=== PATIENT | male | born 1950 | race Hispanic/Latino ===

== ENCOUNTER 2022-02-10 19:05 | Inpatient (IN) | payer OTHER ==
[~2022-02-10] VITALS: Ht 167.6 cm; Wt 55.0 kg
[~2022-02-10 19:05] MED LIST: AMLO5TAB4 PO; ASPI-1005 PO; ATOR40TA71 PO; FOLI1 PO; FURO20TA6 PO; METO25 PO
[2022-02-10] MEDS ORDERED: MORPHINE 4 MG SYG IVP ONE (19:30)
[2022-02-10] MEDS ORDERED: ONDANSETRON 4MG INJ IVP ONE (19:30)
[2022-02-10 19:58] LABS: BASOPHILS % (AUTO) 0.3 % (0.0-5.0); EOSINOPHILS % (AUTO) 0.2 % (0.0-8.0); HEMATOCRIT 35.9 % (42-54); LYMPHOCYTES % (AUTO) 7.3 % (21.0-51.0); MEAN CORPUSCULAR HEMOGLOBIN 29.9 pg (27.0-33.0); MEAN CORPUSCULAR HGB CONC 35.1 g/dL (32.0-36.0); MEAN CORPUSCULAR VOLUME 85.3 fL (79-99); NEUTROPHILS % (AUTO) 86.5 % (40.0-77.0); PLATELET COUNT (AUTO) 324 K/uL (130-400); RED BLOOD CELL COUNT(AUTO) 4.21 MIL/uL (4.50-6.20); RED CELL DISTRIBUTION WIDTH 11.6 % (11.0-15.5)
[2022-02-10 20:23] LABS: CREATININE 1.7 mg/dL (0.5-1.5); POTASSIUM 3.1 mmol/L (3.5-5.1)
[2022-02-10 20:32] LABS: ALBUMIN 1.7 g/dL (3.5-5.0); BILIRUBIN,TOTAL 0.5 mg/dL (0.2-1.0); TOTAL PROTEIN, SERUM 7.2 g/dL (6.0-8.3)
[2022-02-10] MEDS ORDERED: ZOSYN 3.375GM +NS 50ML IV SCH (21:00)
[2022-02-10] MEDS ORDERED: INSULIN HUMULIN R 100 UNIT/ML 3ML SQ ONE (21:00)
[2022-02-10] MEDS ORDERED: VANCOMYCIN KIT 1 GM/250 ML IV.KIT IV ONE (21:00)
[2022-02-10] MEDS ORDERED: CLINDAMYCIN IVPB 900MG/50ML 50 ML IV SCH (21:00)
[2022-02-10] MEDS ORDERED: 0.9%NACL 1000ML 1,000 ML IV ONE (21:00)
[2022-02-10] MEDS ORDERED: HYDRALAZINE 20MG/ML VIAL IV PRN (22:00)
[2022-02-10] MEDS ORDERED: ACETAMINOPHEN 325 MG TAB PO PRN (22:00)
[2022-02-10] MEDS ORDERED: ONDANSETRON 4MG INJ IV PRN (22:00)
[2022-02-10] MEDS ORDERED: DIPHENHYDRAMINE HCL 25 MG CAPSULE PO PRN (22:00)
[2022-02-10] MEDS ORDERED: HYDROCODONE/ACETAMINOPHEN 5/325 MG TAB PO ONE (22:30)
[2022-02-11] MEDS: LACTATED RINGERS 1000ML 1,000 ML IV SCH ×2 (00:46→08:36)
[2022-02-11] MEDS ORDERED: GLUCAGON 1MG KIT 1 MG ML IM PRN (05:30)
[2022-02-11] MEDS ORDERED: DEXTROSE 50%-WATER 50 ML DISP.SYRIN IV PRN (05:30)
[2022-02-11 07:03] LABS: BASOPHILS % (AUTO) 0.4 % (0.0-5.0); EOSINOPHILS % (AUTO) 0.8 % (0.0-8.0); HEMATOCRIT 35.1 % (42-54); LYMPHOCYTES % (AUTO) 8.5 % (21.0-51.0); MEAN CORPUSCULAR HGB CONC 33.3 g/dL (32.0-36.0); MEAN CORPUSCULAR VOLUME 86.9 fL (79-99); MONOCYTES % (AUTO) 5.5 % (3.0-13.0); PLATELET COUNT (AUTO) 321 K/uL (130-400); RED BLOOD CELL COUNT(AUTO) 4.04 MIL/uL (4.50-6.20); RED CELL DISTRIBUTION WIDTH 11.5 % (11.0-15.5); WHITE BLOOD COUNT (AUTO) 22.5 K/uL (4.8-10.8)
[2022-02-11 07:18] LABS: ALBUMIN 1.6 g/dL (3.5-5.0); BILIRUBIN,TOTAL 0.7 mg/dL (0.2-1.0); CREATININE 1.5 mg/dL (0.5-1.5); POTASSIUM 3.4 mmol/L (3.5-5.1); TOTAL PROTEIN, SERUM 6.7 g/dL (6.0-8.3)
[2022-02-11] MEDS: ZOSYN 3.375GM +NS 50ML IV SCH ×3 (07:18→22:18)
[2022-02-11] MEDS: INSULIN HUMULIN R 100 UNIT/ML 3ML SQ SCH ×4 (07:30→20:31)
[2022-02-11] MEDS ORDERED: VANCOMYCIN PROTOCOL PER PHARMACY IV SCH (08:30)
[2022-02-11] MEDS ORDERED: GABA300C PO (08:40)
[2022-02-11] MEDS: ACETAMINOPHEN WITH CODEINE 1 TAB TAB PO PRN ×2 (09:08→18:14)
[2022-02-11 09:09] LABS: HEMOGLOBIN A1C 8.5 % (4.0-6.0)
[2022-02-11] MEDS ORDERED: VANCOMYCIN 1G/250ML KIT 250 ML IV SCH (10:00)
[2022-02-11 16:00] VITALS: BP 146/66
[2022-02-11 19:55] VITALS: BP 137/67
[2022-02-11] MEDS: METOPROLOL TARTRATE 25 MG TAB PO SCH (20:30)
[2022-02-11] MEDS: VANCOMYCIN 500MG+NS 100ML 100 ML IV SCH (20:30)
[2022-02-11 23:29] VITALS: BP 130/68
[2022-02-12] MEDS: LACTATED RINGERS 1000ML 1,000 ML IV SCH (02:59)
[2022-02-12 03:19] VITALS: BP 150/67
[2022-02-12 05:25] LABS: BASOPHILS % (AUTO) 0.6 % (0.0-5.0); EOSINOPHILS % (AUTO) 1.7 % (0.0-8.0); HEMATOCRIT 33.2 % (42-54); LYMPHOCYTES % (AUTO) 7.9 % (21.0-51.0); MEAN CORPUSCULAR HEMOGLOBIN 29.4 pg (27.0-33.0); MEAN CORPUSCULAR VOLUME 86.2 fL (79-99); MONOCYTES % (AUTO) 5.5 % (3.0-13.0); NEUTROPHILS % (AUTO) 83.5 % (40.0-77.0); PLATELET COUNT (AUTO) 345 K/uL (130-400); RED BLOOD CELL COUNT(AUTO) 3.85 MIL/uL (4.50-6.20); RED CELL DISTRIBUTION WIDTH 11.7 % (11.0-15.5); WHITE BLOOD COUNT (AUTO) 21.3 K/uL (4.8-10.8)
[2022-02-12 05:51] LABS: CREATININE 1.6 mg/dL (0.5-1.5); MAGNESIUM 1.8 mg/dL (1.80-2.40); POTASSIUM 3.3 mmol/L (3.5-5.1)
[2022-02-12] MEDS: ZOSYN 3.375GM +NS 50ML IV SCH ×3 (05:57→20:46)
[2022-02-12] MEDS: INSULIN HUMULIN R 100 UNIT/ML 3ML SQ SCH ×4 (05:58→21:44)
[2022-02-12] MEDS: ACETAMINOPHEN WITH CODEINE 1 TAB TAB PO PRN ×2 (06:07→13:48)
[2022-02-12 08:00] VITALS: BP 189/66
[2022-02-12] MEDS: METOPROLOL TARTRATE 25 MG TAB PO SCH ×2 (09:02→20:43)
[2022-02-12] MEDS: AMLODIPINE 5 MG TAB PO SCH (09:03)
[2022-02-12] MEDS: VANCOMYCIN 500MG+NS 100ML 100 ML IV SCH ×2 (09:03→20:43)
[2022-02-12] MEDS: KCL 20 MEQ ERTAB PO PRN (09:03)
[2022-02-12] MEDS: KCL 20 MEQ ERTAB PO SCH (09:08)
[2022-02-12 12:00] VITALS: BP 137/78
[2022-02-12] MEDS: POLYETHYLENE GLYCOL 3350 17 GM POWD.PACK PO SCH (13:32)
[2022-02-12] MEDS: ASPIRIN 81 MG EC TAB PO SCH (13:32)
[2022-02-12 16:00] VITALS: BP 130/61
[2022-02-12 19:00] VITALS: BP 143/63
[2022-02-12] MEDS: DOCUSATE SODIUM 100 MG CAP PO SCH (20:43)
[2022-02-13] VITALS (7 sets, daily range): BP systolic 113–159; BP diastolic 57–77
[2022-02-13] MEDS: ZOSYN 3.375GM +NS 50ML IV SCH ×3 (05:06→20:30)
[2022-02-13] MEDS: INSULIN HUMULIN R 100 UNIT/ML 3ML SQ SCH ×4 (06:06→20:30)
[2022-02-13] MEDS ORDERED: NAFCILLIN 2GM+ NS 100ML IV SCH (08:00)
[2022-02-13] MEDS: DOCUSATE SODIUM 100 MG CAP PO SCH ×2 (08:20→20:29)
[2022-02-13] MEDS: AMLODIPINE 5 MG TAB PO SCH (08:20)
[2022-02-13] MEDS: METOPROLOL TARTRATE 25 MG TAB PO SCH ×2 (08:20→20:29)
[2022-02-13] MEDS: ASPIRIN 81 MG EC TAB PO SCH (08:20)
[2022-02-13] MEDS: KCL 20 MEQ ERTAB PO SCH (08:59)
[2022-02-13] MEDS: NAFCILLIN 2GM+ NS 100ML 100 ML IV SCH ×2 (09:00→12:27)
[2022-02-13 10:00] LABS: BASOPHILS % (AUTO) 0.5 % (0.0-5.0); EOSINOPHILS % (AUTO) 1.6 % (0.0-8.0); HEMATOCRIT 32.6 % (42-54); LYMPHOCYTES % (AUTO) 8.2 % (21.0-51.0); MEAN CORPUSCULAR HEMOGLOBIN 28.6 pg (27.0-33.0); MEAN CORPUSCULAR HGB CONC 33.4 g/dL (32.0-36.0); MEAN CORPUSCULAR VOLUME 85.6 fL (79-99); MONOCYTES % (AUTO) 4.1 % (3.0-13.0); NEUTROPHILS % (AUTO) 85.1 % (40.0-77.0); PLATELET COUNT (AUTO) 328 K/uL (130-400); RED BLOOD CELL COUNT(AUTO) 3.81 MIL/uL (4.50-6.20); RED CELL DISTRIBUTION WIDTH 11.7 % (11.0-15.5); WHITE BLOOD COUNT (AUTO) 20.8 K/uL (4.8-10.8)
[2022-02-13 10:08] LABS: CREATININE 1.6 mg/dL (0.5-1.5); POTASSIUM 3.6 mmol/L (3.5-5.1)
[2022-02-13] MEDS: POLYETHYLENE GLYCOL 3350 17 GM POWD.PACK PO SCH (12:38)
[2022-02-13] MEDS: ACETAMINOPHEN WITH CODEINE 1 TAB TAB PO PRN (12:38)
[2022-02-13] MEDS: INSULIN GLARGINE 100 UNITS/ML 10 ML VIAL SQ SCH (20:31)
[2022-02-14] MEDS ORDERED: PHARMACY COMMUNICATION MISC SCH (02:00)
[2022-02-14 04:09] VITALS: BP 148/63
[2022-02-14] MEDS: ZOSYN 3.375GM +NS 50ML IV SCH ×3 (04:39→21:03)
[2022-02-14] MEDS: INSULIN HUMULIN R 100 UNIT/ML 3ML SQ SCH ×4 (05:42→21:00)
[2022-02-14 06:51] LABS: BASOPHILS % (AUTO) 0.5 % (0.0-5.0); EOSINOPHILS % (AUTO) 3.3 % (0.0-8.0); HEMATOCRIT 31.6 % (42-54); LYMPHOCYTES % (AUTO) 11.2 % (21.0-51.0); MEAN CORPUSCULAR HEMOGLOBIN 29.7 pg (27.0-33.0); MEAN CORPUSCULAR HGB CONC 34.8 g/dL (32.0-36.0); MEAN CORPUSCULAR VOLUME 85.4 fL (79-99); NEUTROPHILS % (AUTO) 79.6 % (40.0-77.0); PLATELET COUNT (AUTO) 363 K/uL (130-400); RED CELL DISTRIBUTION WIDTH 11.7 % (11.0-15.5); WHITE BLOOD COUNT (AUTO) 17.7 K/uL (4.8-10.8)
[2022-02-14 07:09] LABS: CREATININE 1.5 mg/dL (0.5-1.5); POTASSIUM 3.3 mmol/L (3.5-5.1)
[2022-02-14 07:25] LABS: CRP QUANTITATIVE 165.2 mg/L (0.00-9.0)
[2022-02-14 08:00] VITALS: BP 151/65
[2022-02-14] MEDS: KCL 20 MEQ ERTAB PO SCH (09:00)
[2022-02-14] MEDS ORDERED: VANCOMYCIN 500MG VIAL IVPB SCH (09:00)
[2022-02-14] MEDS: POLYETHYLENE GLYCOL 3350 17 GM POWD.PACK PO SCH (09:06)
[2022-02-14] MEDS ORDERED: KCL 20 MEQ ERTAB PO SCH (09:30)
[2022-02-14 11:00] VITALS: BP 161/66
[2022-02-14] MEDS: DOCUSATE SODIUM 100 MG CAP PO SCH ×2 (11:22→21:04)
[2022-02-14] MEDS: AMLODIPINE 5 MG TAB PO SCH (11:22)
[2022-02-14] MEDS: ASPIRIN 81 MG EC TAB PO SCH (11:22)
[2022-02-14] MEDS: METOPROLOL TARTRATE 25 MG TAB PO SCH ×2 (11:22→21:04)
[2022-02-14] MEDS: HYDROCHLOROTHIAZIDE 25 MG TABLET PO SCH (11:24)
[2022-02-14] MEDS ORDERED: LACTULOSE 20 GM/30 ML UDCUP PO SCH (11:30)
[2022-02-14] MEDS ORDERED: HYDROCHLOROTHIAZIDE 25 MG TABLET PO ONE (11:30)
[2022-02-14] MEDS ORDERED: GABAPENTIN 300 MG CAPSULE ONE (11:34)
[2022-02-14] MEDS: GABAPENTIN 300 MG CAPSULE PO SCH ×2 (11:58→21:04)
[2022-02-14] MEDS ORDERED: LIDOCAINE HCL MPF 1% 5ML VIAL ONE ×2 (15:25→15:55)
[2022-02-14 16:00] VITALS: BP 156/69
[2022-02-14] MEDS ORDERED: MORPHINE 4 MG SYG ONE (16:07)
[2022-02-14] MEDS ORDERED: MORPHINE 4 MG SYG IVP SCH (16:30)
[2022-02-14] MEDS: FAMOTIDINE 20MG TAB PO SCH (18:23)
[2022-02-14 21:00] VITALS: BP 140/71
[2022-02-14] MEDS: BISACODYL 5 MG TABLET.DR PO SCH (21:04)
[2022-02-14] MEDS: INSULIN GLARGINE 100 UNITS/ML 10 ML VIAL SQ SCH (21:12)
[2022-02-15] VITALS (7 sets, daily range): BP systolic 140–171; BP diastolic 56–77
[2022-02-15 04:54] LABS: HEMATOCRIT 30.8 % (42-54); MEAN CORPUSCULAR HGB CONC 33.8 g/dL (32.0-36.0); MEAN CORPUSCULAR VOLUME 85.8 fL (79-99); RED BLOOD CELL COUNT(AUTO) 3.59 MIL/uL (4.50-6.20); RED CELL DISTRIBUTION WIDTH 11.8 % (11.0-15.5); WHITE BLOOD COUNT (AUTO) 15.8 K/uL (4.8-10.8)
[2022-02-15 05:09] LABS: CREATININE 1.4 mg/dL (0.5-1.5)
[2022-02-15] MEDS: INSULIN HUMULIN R 100 UNIT/ML 3ML SQ SCH ×4 (06:57→21:11)
[2022-02-15] MEDS: ZOSYN 3.375GM +NS 50ML IV SCH ×3 (07:01→21:02)
[2022-02-15] MEDS: FAMOTIDINE 20MG TAB PO SCH (10:58)
[2022-02-15] MEDS: GABAPENTIN 300 MG CAPSULE PO SCH ×3 (10:59→21:04)
[2022-02-15] MEDS: DOCUSATE SODIUM 100 MG CAP PO SCH ×2 (10:59→21:04)
[2022-02-15] MEDS: ASPIRIN 81 MG EC TAB PO SCH (10:59)
[2022-02-15] MEDS: HYDROCHLOROTHIAZIDE 25 MG TABLET PO SCH (11:00)
[2022-02-15] MEDS: METOPROLOL TARTRATE 25 MG TAB PO SCH ×2 (11:00→21:04)
[2022-02-15] MEDS: ACETAMINOPHEN WITH CODEINE 1 TAB TAB PO PRN (11:02)
[2022-02-15] MEDS: BISACODYL 5 MG TABLET.DR PO SCH ×2 (11:03→21:04)
[2022-02-15] MEDS: KCL 20 MEQ ERTAB PO SCH (11:03)
[2022-02-15] MEDS: AMLODIPINE 5 MG TAB PO SCH (11:05)
[2022-02-15] MEDS ORDERED: KETOROLAC 30MG VIAL (30MG/ML) IVP SCH (13:30)
[2022-02-15] MEDS: KCL 20 MEQ ERTAB PO PRN ×4 (13:32→21:03)
[2022-02-15] MEDS: INSULIN GLARGINE 100 UNITS/ML 10 ML VIAL SQ SCH (21:11)
[2022-02-16 04:19] VITALS: BP 146/76
[2022-02-16 04:46] LABS: HEMATOCRIT 33.3 % (42-54); MEAN CORPUSCULAR HEMOGLOBIN 29.1 pg (27.0-33.0); MEAN CORPUSCULAR HGB CONC 33.3 g/dL (32.0-36.0); MEAN CORPUSCULAR VOLUME 87.2 fL (79-99); RED BLOOD CELL COUNT(AUTO) 3.82 MIL/uL (4.50-6.20); RED CELL DISTRIBUTION WIDTH 11.9 % (11.0-15.5); WHITE BLOOD COUNT (AUTO) 10.1 K/uL (4.8-10.8)
[2022-02-16 05:10] LABS: CREATININE 1.6 mg/dL (0.5-1.5)
[2022-02-16] MEDS: ACETAMINOPHEN WITH CODEINE 1 TAB TAB PO PRN ×3 (05:40→21:39)
[2022-02-16] MEDS: ZOSYN 3.375GM +NS 50ML IV SCH ×3 (05:41→21:30)
[2022-02-16] MEDS: INSULIN HUMULIN R 100 UNIT/ML 3ML SQ SCH ×4 (06:33→21:00)
[2022-02-16 08:01] VITALS: BP 142/59
[2022-02-16] MEDS: DOCUSATE SODIUM 100 MG CAP PO SCH ×2 (08:59→21:31)
[2022-02-16] MEDS: AMLODIPINE 5 MG TAB PO SCH (08:59)
[2022-02-16] MEDS: METOPROLOL TARTRATE 25 MG TAB PO SCH ×2 (09:01→21:32)
[2022-02-16] MEDS: GABAPENTIN 300 MG CAPSULE PO SCH ×3 (09:01→21:31)
[2022-02-16] MEDS: BISACODYL 5 MG TABLET.DR PO SCH ×2 (09:02→21:32)
[2022-02-16] MEDS: HYDROCHLOROTHIAZIDE 25 MG TABLET PO SCH (09:02)
[2022-02-16] MEDS: FAMOTIDINE 20MG TAB PO SCH (09:02)
[2022-02-16] MEDS: ASPIRIN 81 MG EC TAB PO SCH (09:03)
[2022-02-16 11:04] VITALS: BP 155/96
[2022-02-16 16:44] VITALS: BP 154/70
[2022-02-16 20:30] VITALS: BP 147/61
[2022-02-16] MEDS: INSULIN GLARGINE 100 UNITS/ML 10 ML VIAL SQ SCH (21:42)
[2022-02-16 23:25] VITALS: BP 140/61
[2022-02-17 03:51] VITALS: BP 159/74
[2022-02-17 05:13] LABS: HEMATOCRIT 30.7 % (42-54); MEAN CORPUSCULAR HEMOGLOBIN 29.3 pg (27.0-33.0); MEAN CORPUSCULAR HGB CONC 33.9 g/dL (32.0-36.0); MEAN CORPUSCULAR VOLUME 86.5 fL (79-99); RED BLOOD CELL COUNT(AUTO) 3.55 MIL/uL (4.50-6.20); RED CELL DISTRIBUTION WIDTH 11.9 % (11.0-15.5); WHITE BLOOD COUNT (AUTO) 10.7 K/uL (4.8-10.8)
[2022-02-17 05:29] LABS: CREATININE 1.5 mg/dL (0.5-1.5); POTASSIUM 3.3 mmol/L (3.5-5.1)
[2022-02-17] MEDS: ZOSYN 3.375GM +NS 50ML IV SCH ×3 (06:03→21:37)
[2022-02-17] MEDS: INSULIN HUMULIN R 100 UNIT/ML 3ML SQ SCH ×4 (06:05→21:45)
[2022-02-17 08:00] VITALS: BP 151/70
[2022-02-17] MEDS: AMLODIPINE 5 MG TAB PO SCH (08:41)
[2022-02-17] MEDS: KCL 20 MEQ ERTAB PO PRN ×3 (08:41→17:46)
[2022-02-17] MEDS: GABAPENTIN 300 MG CAPSULE PO SCH ×3 (08:42→21:37)
[2022-02-17] MEDS: HYDROCHLOROTHIAZIDE 25 MG TABLET PO SCH (08:42)
[2022-02-17] MEDS: ASPIRIN 81 MG EC TAB PO SCH (08:42)
[2022-02-17] MEDS: METOPROLOL TARTRATE 25 MG TAB PO SCH ×2 (08:42→21:37)
[2022-02-17] MEDS: FAMOTIDINE 20MG TAB PO SCH (08:42)
[2022-02-17] MEDS: DOCUSATE SODIUM 100 MG CAP PO SCH ×2 (08:43→21:37)
[2022-02-17] MEDS: BISACODYL 5 MG TABLET.DR PO SCH ×2 (08:43→21:37)
[2022-02-17 12:00] VITALS: BP 164/69
[2022-02-17] MEDS: ACETAMINOPHEN WITH CODEINE 1 TAB TAB PO PRN (12:44)
[2022-02-17 16:00] VITALS: BP 165/64
[2022-02-17 20:17] VITALS: BP 144/60
[2022-02-17] MEDS: INSULIN GLARGINE 100 UNITS/ML 10 ML VIAL SQ SCH (21:45)
[2022-02-17 23:44] VITALS: BP 158/59
[2022-02-18 04:10] VITALS: BP 151/66
[2022-02-18] MEDS: ZOSYN 3.375GM +NS 50ML IV SCH ×3 (04:37→21:48)
[2022-02-18 05:18] LABS: HEMATOCRIT 32.3 % (42-54); MEAN CORPUSCULAR HEMOGLOBIN 28.7 pg (27.0-33.0); MEAN CORPUSCULAR HGB CONC 32.8 g/dL (32.0-36.0); MEAN CORPUSCULAR VOLUME 87.5 fL (79-99); RED BLOOD CELL COUNT(AUTO) 3.69 MIL/uL (4.50-6.20); RED CELL DISTRIBUTION WIDTH 11.9 % (11.0-15.5); WHITE BLOOD COUNT (AUTO) 12.4 K/uL (4.8-10.8)
[2022-02-18 06:12] LABS: ALBUMIN 1.5 g/dL (3.5-5.0); BILIRUBIN,TOTAL 0.2 mg/dL (0.2-1.0); CREATININE 1.6 mg/dL (0.5-1.5); POTASSIUM 3.5 mmol/L (3.5-5.1); TOTAL PROTEIN, SERUM 6.7 g/dL (6.0-8.3)
[2022-02-18] MEDS: INSULIN HUMULIN R 100 UNIT/ML 3ML SQ SCH ×4 (06:12→20:03)
[2022-02-18 08:00] VITALS: BP 156/71
[2022-02-18] MEDS: GABAPENTIN 300 MG CAPSULE PO SCH ×3 (08:42→20:01)
[2022-02-18] MEDS: KCL 20 MEQ ERTAB PO PRN ×2 (08:42→18:15)
[2022-02-18] MEDS: AMLODIPINE 5 MG TAB PO SCH (08:42)
[2022-02-18] MEDS: ACETAMINOPHEN WITH CODEINE 1 TAB TAB PO PRN ×2 (08:42→20:01)
[2022-02-18] MEDS: HYDROCHLOROTHIAZIDE 25 MG TABLET PO SCH (08:43)
[2022-02-18] MEDS: METOPROLOL TARTRATE 25 MG TAB PO SCH ×2 (08:43→20:01)
[2022-02-18] MEDS: BISACODYL 5 MG TABLET.DR PO SCH ×2 (08:43→20:03)
[2022-02-18] MEDS: DOCUSATE SODIUM 100 MG CAP PO SCH ×2 (08:43→20:03)
[2022-02-18] MEDS: ASPIRIN 81 MG EC TAB PO SCH (08:43)
[2022-02-18] MEDS: FAMOTIDINE 20MG TAB PO SCH (08:43)
[2022-02-18 12:00] VITALS: BP 154/66
[2022-02-18 16:00] VITALS: BP 164/67
[2022-02-18] MEDS: INSULIN GLARGINE 100 UNITS/ML 10 ML VIAL SQ SCH (20:02)
[2022-02-18 20:42] VITALS: BP 161/73
[2022-02-19] VITALS (7 sets, daily range): BP systolic 142–166; BP diastolic 35–75
[2022-02-19] MEDS: ZOSYN 3.375GM +NS 50ML IV SCH ×3 (04:34→22:07)
[2022-02-19] MEDS: INSULIN HUMULIN R 100 UNIT/ML 3ML SQ SCH ×4 (06:16→21:00)
[2022-02-19] MEDS: AMLODIPINE 5 MG TAB PO SCH (08:50)
[2022-02-19] MEDS: ASPIRIN 81 MG EC TAB PO SCH (08:50)
[2022-02-19] MEDS: FAMOTIDINE 20MG TAB PO SCH (08:50)
[2022-02-19] MEDS: GABAPENTIN 300 MG CAPSULE PO SCH ×3 (08:50→22:07)
[2022-02-19] MEDS: BISACODYL 5 MG TABLET.DR PO SCH ×2 (08:50→22:08)
[2022-02-19] MEDS: HYDROCHLOROTHIAZIDE 25 MG TABLET PO SCH (08:50)
[2022-02-19] MEDS: DOCUSATE SODIUM 100 MG CAP PO SCH ×2 (08:50→22:08)
[2022-02-19] MEDS: METOPROLOL TARTRATE 25 MG TAB PO SCH ×2 (08:52→22:07)
[2022-02-19] MEDS: ACETAMINOPHEN WITH CODEINE 1 TAB TAB PO PRN ×2 (09:41→14:34)
[2022-02-19] MEDS: KCL 20 MEQ ERTAB PO PRN ×2 (13:28→18:11)
[2022-02-19] MEDS: SODIUM HYPOCHLORITE 0.125% 473 ML SOLUTION TP SCH (14:35)
[2022-02-19] MEDS: INSULIN GLARGINE 100 UNITS/ML 10 ML VIAL SQ SCH (22:17)
[2022-02-20 04:31] VITALS: BP 149/69
[2022-02-20] MEDS: ZOSYN 3.375GM +NS 50ML IV SCH ×3 (04:37→21:40)
[2022-02-20 05:03] LABS: BASOPHILS % (AUTO) 0.7 % (0.0-5.0); EOSINOPHILS % (AUTO) 5.3 % (0.0-8.0); HEMATOCRIT 33.1 % (42-54); LYMPHOCYTES % (AUTO) 19.9 % (21.0-51.0); MEAN CORPUSCULAR HEMOGLOBIN 29.4 pg (27.0-33.0); MEAN CORPUSCULAR HGB CONC 33.5 g/dL (32.0-36.0); MEAN CORPUSCULAR VOLUME 87.6 fL (79-99); MONOCYTES % (AUTO) 5.9 % (3.0-13.0); NEUTROPHILS % (AUTO) 67.8 % (40.0-77.0); PLATELET COUNT (AUTO) 448 K/uL (130-400); RED BLOOD CELL COUNT(AUTO) 3.78 MIL/uL (4.50-6.20); RED CELL DISTRIBUTION WIDTH 12.2 % (11.0-15.5); WHITE BLOOD COUNT (AUTO) 10.9 K/uL (4.8-10.8)
[2022-02-20 05:24] LABS: CREATININE 1.7 mg/dL (0.5-1.5); POTASSIUM 3.4 mmol/L (3.5-5.1)
[2022-02-20] MEDS: INSULIN HUMULIN R 100 UNIT/ML 3ML SQ SCH ×4 (05:42→21:55)
[2022-02-20 08:00] VITALS: BP 96/60
[2022-02-20] MEDS: ASPIRIN 81 MG EC TAB PO SCH (08:42)
[2022-02-20] MEDS: GABAPENTIN 300 MG CAPSULE PO SCH ×3 (08:42→21:38)
[2022-02-20] MEDS: FAMOTIDINE 20MG TAB PO SCH (08:42)
[2022-02-20] MEDS: BISACODYL 5 MG TABLET.DR PO SCH ×2 (08:42→21:38)
[2022-02-20] MEDS: DOCUSATE SODIUM 100 MG CAP PO SCH ×2 (08:42→21:39)
[2022-02-20] MEDS: ACETAMINOPHEN WITH CODEINE 1 TAB TAB PO PRN (11:03)
[2022-02-20] MEDS: METOPROLOL TARTRATE 25 MG TAB PO SCH ×2 (11:39→21:39)
[2022-02-20] MEDS: SODIUM HYPOCHLORITE 0.125% 473 ML SOLUTION TP SCH (11:40)
[2022-02-20] MEDS: AMLODIPINE 5 MG TAB PO SCH (11:40)
[2022-02-20] MEDS: HYDROCHLOROTHIAZIDE 25 MG TABLET PO SCH (11:40)
[2022-02-20 11:51] VITALS: BP 151/75
[2022-02-20] MEDS: KCL 20 MEQ ERTAB PO PRN (15:59)
[2022-02-20 16:00] VITALS: BP 154/75
[2022-02-20 19:22] VITALS: BP 168/68
[2022-02-20] MEDS: INSULIN GLARGINE 100 UNITS/ML 10 ML VIAL SQ SCH (21:56)
[2022-02-21 00:09] VITALS: BP 141/68
[2022-02-21 04:07] VITALS: BP 152/71
[2022-02-21] MEDS: ZOSYN 3.375GM +NS 50ML IV SCH ×3 (04:59→20:34)
[2022-02-21 05:09] LABS: BASOPHILS % (AUTO) 0.9 % (0.0-5.0); EOSINOPHILS % (AUTO) 5.2 % (0.0-8.0); HEMATOCRIT 33.5 % (42-54); MEAN CORPUSCULAR HEMOGLOBIN 28.5 pg (27.0-33.0); MEAN CORPUSCULAR HGB CONC 31.9 g/dL (32.0-36.0); MEAN CORPUSCULAR VOLUME 89.1 fL (79-99); MONOCYTES % (AUTO) 6.6 % (3.0-13.0); NEUTROPHILS % (AUTO) 61.9 % (40.0-77.0); PLATELET COUNT (AUTO) 382 K/uL (130-400); RED BLOOD CELL COUNT(AUTO) 3.76 MIL/uL (4.50-6.20); RED CELL DISTRIBUTION WIDTH 12.4 % (11.0-15.5)
[2022-02-21] MEDS: INSULIN HUMULIN R 100 UNIT/ML 3ML SQ SCH ×4 (05:40→20:34)
[2022-02-21 05:42] LABS: ALBUMIN 1.7 g/dL (3.5-5.0); BILIRUBIN,TOTAL 0.2 mg/dL (0.2-1.0); CREATININE 1.6 mg/dL (0.5-1.5); POTASSIUM 3.4 mmol/L (3.5-5.1); TOTAL PROTEIN, SERUM 6.6 g/dL (6.0-8.3)
[2022-02-21 08:00] VITALS: BP 132/82
[2022-02-21] MEDS: FAMOTIDINE 20MG TAB PO SCH (09:36)
[2022-02-21] MEDS: HYDROCHLOROTHIAZIDE 25 MG TABLET PO SCH (09:37)
[2022-02-21] MEDS: GABAPENTIN 300 MG CAPSULE PO SCH ×3 (09:37→20:34)
[2022-02-21] MEDS: AMLODIPINE 5 MG TAB PO SCH (09:37)
[2022-02-21] MEDS: BISACODYL 5 MG TABLET.DR PO SCH ×2 (09:37→20:29)
[2022-02-21] MEDS: METOPROLOL TARTRATE 25 MG TAB PO SCH ×2 (09:37→20:32)
[2022-02-21] MEDS: DOCUSATE SODIUM 100 MG CAP PO SCH ×2 (09:38→20:29)
[2022-02-21] MEDS: ASPIRIN 81 MG EC TAB PO SCH (09:38)
[2022-02-21] MEDS: SODIUM HYPOCHLORITE 0.125% 473 ML SOLUTION TP SCH (09:39)
[2022-02-21 11:58] VITALS: BP 152/61
[2022-02-21 16:00] VITALS: BP 155/71
[2022-02-21] MEDS: ACETAMINOPHEN WITH CODEINE 1 TAB TAB PO PRN (16:44)
[2022-02-21 20:00] VITALS: BP 133/56
[2022-02-21] MEDS: INSULIN GLARGINE 100 UNITS/ML 10 ML VIAL SQ SCH (21:41)
[2022-02-22] VITALS: BP 135/61
[2022-02-22 04:00] VITALS: BP 150/69
[2022-02-22] MEDS: ZOSYN 3.375GM +NS 50ML IV SCH ×3 (05:41→20:50)
[2022-02-22] MEDS: INSULIN HUMULIN R 100 UNIT/ML 3ML SQ SCH ×4 (06:45→20:45)
[2022-02-22 07:30] VITALS: BP 151/73
[2022-02-22] MEDS: BISACODYL 5 MG TABLET.DR PO SCH ×2 (09:00→20:46)
[2022-02-22] MEDS: DOCUSATE SODIUM 100 MG CAP PO SCH ×2 (09:00→20:46)
[2022-02-22] MEDS: METOPROLOL TARTRATE 25 MG TAB PO SCH ×2 (09:30→20:50)
[2022-02-22] MEDS: AMLODIPINE 5 MG TAB PO SCH (09:30)
[2022-02-22] MEDS: HYDROCHLOROTHIAZIDE 25 MG TABLET PO SCH (09:30)
[2022-02-22] MEDS: ASPIRIN 81 MG EC TAB PO SCH (09:30)
[2022-02-22] MEDS: FAMOTIDINE 20MG TAB PO SCH (09:30)
[2022-02-22] MEDS: GABAPENTIN 300 MG CAPSULE PO SCH ×3 (09:30→20:50)
[2022-02-22] MEDS: SODIUM HYPOCHLORITE 0.125% 473 ML SOLUTION TP SCH (09:31)
[2022-02-22 11:00] VITALS: BP 149/64
[2022-02-22 16:00] VITALS: BP 160/67
[2022-02-22] MEDS: ACETAMINOPHEN WITH CODEINE 1 TAB TAB PO PRN (16:18)
[2022-02-22 20:00] VITALS: BP 121/76
[2022-02-22] MEDS: INSULIN GLARGINE 100 UNITS/ML 10 ML VIAL SQ SCH (20:51)
[2022-02-23] VITALS: BP 153/72
[2022-02-23 04:00] VITALS: BP 150/69
[2022-02-23] MEDS: ZOSYN 3.375GM +NS 50ML IV SCH ×3 (05:12→20:19)
[2022-02-23] MEDS: INSULIN HUMULIN R 100 UNIT/ML 3ML SQ SCH ×3 (06:39→21:23)
[2022-02-23 07:30] VITALS: BP 158/77
[2022-02-23] MEDS: HYDROCHLOROTHIAZIDE 25 MG TABLET PO SCH (08:39)
[2022-02-23] MEDS: GABAPENTIN 300 MG CAPSULE PO SCH ×3 (08:39→21:27)
[2022-02-23] MEDS: FAMOTIDINE 20MG TAB PO SCH (08:39)
[2022-02-23] MEDS: METOPROLOL TARTRATE 25 MG TAB PO SCH ×2 (08:39→20:19)
[2022-02-23] MEDS: AMLODIPINE 5 MG TAB PO SCH (08:40)
[2022-02-23] MEDS: DOCUSATE SODIUM 100 MG CAP PO SCH ×2 (08:40→20:25)
[2022-02-23] MEDS: ASPIRIN 81 MG EC TAB PO SCH (08:40)
[2022-02-23] MEDS: BISACODYL 5 MG TABLET.DR PO SCH ×2 (08:40→20:25)
[2022-02-23 11:00] VITALS: BP 97/57
[2022-02-23 16:00] VITALS: BP 141/63
[2022-02-23 20:00] VITALS: BP 151/70
[2022-02-23] MEDS: ACETAMINOPHEN WITH CODEINE 1 TAB TAB PO PRN (20:19)
[2022-02-23] MEDS: INSULIN GLARGINE 100 UNITS/ML 10 ML VIAL SQ SCH (21:23)
[2022-02-23] MEDS: SODIUM HYPOCHLORITE 0.125% 473 ML SOLUTION TP SCH (21:28)
[2022-02-24] VITALS (7 sets, daily range): BP systolic 120–160; BP diastolic 58–76
[2022-02-24 05:18] LABS: BASOPHILS % (AUTO) 0.9 % (0.0-5.0); EOSINOPHILS % (AUTO) 3.4 % (0.0-8.0); HEMATOCRIT 32.7 % (42-54); LYMPHOCYTES % (AUTO) 27.2 % (21.0-51.0); MEAN CORPUSCULAR HEMOGLOBIN 29.4 pg (27.0-33.0); MEAN CORPUSCULAR HGB CONC 34.3 g/dL (32.0-36.0); MEAN CORPUSCULAR VOLUME 85.8 fL (79-99); MONOCYTES % (AUTO) 7.3 % (3.0-13.0); NEUTROPHILS % (AUTO) 60.9 % (40.0-77.0); PLATELET COUNT (AUTO) 416 K/uL (130-400); RED BLOOD CELL COUNT(AUTO) 3.81 MIL/uL (4.50-6.20); RED CELL DISTRIBUTION WIDTH 12.8 % (11.0-15.5); WHITE BLOOD COUNT (AUTO) 9.8 K/uL (4.8-10.8)
[2022-02-24] MEDS: ZOSYN 3.375GM +NS 50ML IV SCH ×3 (05:41→21:39)
[2022-02-24 05:48] LABS: ALBUMIN 1.8 g/dL (3.5-5.0); BILIRUBIN,TOTAL 0.3 mg/dL (0.2-1.0); CREATININE 1.8 mg/dL (0.5-1.5); POTASSIUM 3.4 mmol/L (3.5-5.1); TOTAL PROTEIN, SERUM 6.6 g/dL (6.0-8.3)
[2022-02-24] MEDS: KCL 20 MEQ ERTAB PO PRN ×2 (06:12→09:29)
[2022-02-24] MEDS: INSULIN HUMULIN R 100 UNIT/ML 3ML SQ SCH ×4 (06:38→21:38)
[2022-02-24] MEDS: GABAPENTIN 300 MG CAPSULE PO SCH ×3 (09:28→21:36)
[2022-02-24] MEDS: FAMOTIDINE 20MG TAB PO SCH (09:29)
[2022-02-24] MEDS: AMLODIPINE 5 MG TAB PO SCH (09:29)
[2022-02-24] MEDS: HYDROCHLOROTHIAZIDE 25 MG TABLET PO SCH (09:30)
[2022-02-24] MEDS: ASPIRIN 81 MG EC TAB PO SCH (09:30)
[2022-02-24] MEDS: DOCUSATE SODIUM 100 MG CAP PO SCH ×2 (09:30→21:37)
[2022-02-24] MEDS: BISACODYL 5 MG TABLET.DR PO SCH ×2 (09:30→21:36)
[2022-02-24] MEDS: METOPROLOL TARTRATE 25 MG TAB PO SCH ×2 (09:30→21:37)
[2022-02-24] MEDS: ACETAMINOPHEN WITH CODEINE 1 TAB TAB PO PRN (10:58)
[2022-02-24] MEDS: SODIUM HYPOCHLORITE 0.125% 473 ML SOLUTION TP SCH (16:47)
[2022-02-24] MEDS: INSULIN GLARGINE 100 UNITS/ML 10 ML VIAL SQ SCH (21:38)
[2022-02-25 04:00] VITALS: BP 152/74
[2022-02-25 05:28] LABS: HEMATOCRIT 33.9 % (42-54); MEAN CORPUSCULAR HEMOGLOBIN 28.8 pg (27.0-33.0); MEAN CORPUSCULAR HGB CONC 32.7 g/dL (32.0-36.0); MEAN CORPUSCULAR VOLUME 87.8 fL (79-99); RED BLOOD CELL COUNT(AUTO) 3.86 MIL/uL (4.50-6.20); WHITE BLOOD COUNT (AUTO) 10.1 K/uL (4.8-10.8)
[2022-02-25 05:43] LABS: CREATININE 1.7 mg/dL (0.5-1.5); POTASSIUM 3.2 mmol/L (3.5-5.1)
[2022-02-25 07:20] VITALS: BP 163/78
[2022-02-25] MEDS: INSULIN HUMULIN R 100 UNIT/ML 3ML SQ SCH ×4 (07:30→21:57)
[2022-02-25 11:20] VITALS: BP 165/67
[2022-02-25] MEDS: HYDROCHLOROTHIAZIDE 25 MG TABLET PO SCH (11:40)
[2022-02-25] MEDS: KCL 20 MEQ ERTAB PO PRN ×2 (11:40→17:54)
[2022-02-25] MEDS: BISACODYL 5 MG TABLET.DR PO SCH ×2 (11:40→21:00)
[2022-02-25] MEDS: GABAPENTIN 300 MG CAPSULE PO SCH ×3 (11:40→21:53)
[2022-02-25] MEDS: ASPIRIN 81 MG EC TAB PO SCH (11:41)
[2022-02-25] MEDS: DOCUSATE SODIUM 100 MG CAP PO SCH ×2 (11:41→21:00)
[2022-02-25] MEDS: METOPROLOL TARTRATE 25 MG TAB PO SCH ×2 (11:41→21:53)
[2022-02-25] MEDS: SODIUM HYPOCHLORITE 0.125% 473 ML SOLUTION TP SCH (11:42)
[2022-02-25] MEDS: AMLODIPINE 5 MG TAB PO SCH (11:42)
[2022-02-25] MEDS: FAMOTIDINE 20MG TAB PO SCH (11:42)
[2022-02-25] MEDS: ACETAMINOPHEN WITH CODEINE 1 TAB TAB PO PRN ×2 (11:47→17:39)
[2022-02-25] MEDS: ZOSYN 3.375GM +NS 50ML IV SCH ×2 (11:58→17:32)
[2022-02-25 15:15] VITALS: BP 157/81
[2022-02-25 20:00] VITALS: BP 163/75
[2022-02-25] MEDS: INSULIN GLARGINE 100 UNITS/ML 10 ML VIAL SQ SCH (21:56)
[2022-02-26] VITALS: BP 145/68
[2022-02-26] MEDS: KCL 20 MEQ ERTAB PO PRN ×2 (01:11→06:53)
[2022-02-26] MEDS: ZOSYN 3.375GM +NS 50ML IV SCH ×3 (03:35→20:19)
[2022-02-26 04:00] VITALS: BP 156/76
[2022-02-26 05:19] LABS: HEMATOCRIT 33.7 % (42-54); MEAN CORPUSCULAR HEMOGLOBIN 29.1 pg (27.0-33.0); MEAN CORPUSCULAR HGB CONC 32.9 g/dL (32.0-36.0); MEAN CORPUSCULAR VOLUME 88.2 fL (79-99); RED BLOOD CELL COUNT(AUTO) 3.82 MIL/uL (4.50-6.20); RED CELL DISTRIBUTION WIDTH 13.1 % (11.0-15.5); WHITE BLOOD COUNT (AUTO) 8.2 K/uL (4.8-10.8)
[2022-02-26 05:42] LABS: CREATININE 1.7 mg/dL (0.5-1.5); MAGNESIUM 1.8 mg/dL (1.80-2.40); POTASSIUM 3.5 mmol/L (3.5-5.1)
[2022-02-26] MEDS: INSULIN HUMULIN R 100 UNIT/ML 3ML SQ SCH ×4 (06:48→21:00)
[2022-02-26 07:53] VITALS: BP 156/77
[2022-02-26] MEDS: BISACODYL 5 MG TABLET.DR PO SCH ×2 (09:00→20:28)
[2022-02-26] MEDS: AMLODIPINE 5 MG TAB PO SCH (11:28)
[2022-02-26] MEDS: GABAPENTIN 300 MG CAPSULE PO SCH ×3 (11:29→20:20)
[2022-02-26] MEDS: FAMOTIDINE 20MG TAB PO SCH (11:29)
[2022-02-26] MEDS: DOCUSATE SODIUM 100 MG CAP PO SCH ×2 (11:29→20:28)
[2022-02-26] MEDS: METOPROLOL TARTRATE 25 MG TAB PO SCH ×2 (11:29→21:59)
[2022-02-26] MEDS: SODIUM HYPOCHLORITE 0.125% 473 ML SOLUTION TP SCH (11:29)
[2022-02-26] MEDS: ASPIRIN 81 MG EC TAB PO SCH (11:29)
[2022-02-26 11:53] VITALS: BP 160/75
[2022-02-26 16:00] VITALS: BP 163/77
[2022-02-26 20:59] VITALS: BP 151/73
[2022-02-26] MEDS: INSULIN GLARGINE 100 UNITS/ML 10 ML VIAL SQ SCH (21:56)
[2022-02-27 00:14] VITALS: BP 138/69
[2022-02-27] MEDS: ZOSYN 3.375GM +NS 50ML IV SCH ×2 (03:34→12:14)
[2022-02-27 04:19] VITALS: BP 148/69
[2022-02-27] MEDS: INSULIN HUMULIN R 100 UNIT/ML 3ML SQ SCH ×3 (06:07→17:30)
[2022-02-27 06:09] LABS: HEMATOCRIT 33.4 % (42-54); MEAN CORPUSCULAR HEMOGLOBIN 29.1 pg (27.0-33.0); MEAN CORPUSCULAR HGB CONC 33.5 g/dL (32.0-36.0); MEAN CORPUSCULAR VOLUME 86.8 fL (79-99); RED BLOOD CELL COUNT(AUTO) 3.85 MIL/uL (4.50-6.20); RED CELL DISTRIBUTION WIDTH 13.2 % (11.0-15.5); WHITE BLOOD COUNT (AUTO) 8.8 K/uL (4.8-10.8)
[2022-02-27 06:24] LABS: CREATININE 1.7 mg/dL (0.5-1.5); POTASSIUM 3.4 mmol/L (3.5-5.1)
[2022-02-27 07:50] VITALS: BP 167/80
[2022-02-27] MEDS: BISACODYL 5 MG TABLET.DR PO SCH (09:00)
[2022-02-27] MEDS: FAMOTIDINE 20MG TAB PO SCH (09:38)
[2022-02-27] MEDS: GABAPENTIN 300 MG CAPSULE PO SCH ×2 (09:38→14:10)
[2022-02-27] MEDS: METOPROLOL TARTRATE 25 MG TAB PO SCH (09:38)
[2022-02-27] MEDS: AMLODIPINE 5 MG TAB PO SCH (09:38)
[2022-02-27] MEDS: DOCUSATE SODIUM 100 MG CAP PO SCH (09:38)
[2022-02-27] MEDS: ASPIRIN 81 MG EC TAB PO SCH (09:38)
[2022-02-27] MEDS: SODIUM HYPOCHLORITE 0.125% 473 ML SOLUTION TP SCH (09:39)
[2022-02-27 12:00] VITALS: BP 166/75
[2022-02-27 16:28] VITALS: BP 144/74
== END 2022-02-27 19:00 | DRG 862 ==
LOC: EDH 19:05 → EDHIP 21:48 → 3BH 02-11 14:44
PROVIDERS: ADMIT Hospitalist; ATTEND Hospitalist
PROC: 0Y9J0ZZ Drainage of Left Lower Leg, Open Approach (ICD-10-PCS; principal; 2022-02-14)
PROC: 0Y9J3ZX Drainage of Left Lower Leg, Percutaneous Approach, Diagnostic (ICD-10-PCS; 2022-02-14)
DX: T81.49XA Infection following a procedure, other surgical site, initial encounter (principal); A41.9 Sepsis, unspecified organism; E43 Unspecified severe protein-calorie malnutrition; L03.116 Cellulitis of left lower limb; N17.9 Acute kidney failure, unspecified; L02.416 Cutaneous abscess of left lower limb; Z68.1 Body mass index [BMI] 19.9 or less, adult; I25.10 Atherosclerotic heart disease of native coronary artery without angina pectoris; E11.40 Type 2 diabetes mellitus with diabetic neuropathy, unspecified; E78.5 Hyperlipidemia, unspecified; Z20.822 Contact with and (suspected) exposure to COVID-19; E78.00 Pure hypercholesterolemia, unspecified; B95.2 Enterococcus as the cause of diseases classified elsewhere; B95.61 Methicillin susceptible Staphylococcus aureus infection as the cause of diseases classified elsewhere; E11.65 Type 2 diabetes mellitus with hyperglycemia; E87.6 Hypokalemia; I10 Essential (primary) hypertension; Z95.0 Presence of cardiac pacemaker; Z83.3 Family history of diabetes mellitus; Z95.1 Presence of aortocoronary bypass graft; Z79.899 Other long term (current) drug therapy
CPT/HCPCS: 36415; 73700; 76882; 76942; 80048; 80053; 80202; 82040; 82550; 82948; 83036; 83605; 83735; 84145; 84484; 85025; 85027; 86140; 87040; 87070; 87076; 87077; 87186; 87635; 93005; 93926; 93971; 97039; 99291; G0378; J1815; J1885; J2270; J2405; J2543; J3370; J3490; J7030; J7120

== ENCOUNTER 2024-06-30 11:23 | Emergency (ER) | payer OTHER, MEDICARE ==
[~2024-06-30] VITALS: Ht 167.6 cm; Wt 58.1 kg
[~2024-06-30 11:23] MED LIST changes: -ATOR40TA71 PO; -FOLI1 PO; -FURO20TA6 PO; +GABA300C PO
[2024-06-30 12:12] VITALS: O2SAT 99
[2024-06-30 14:31] VITALS: BP 137/68; PULSE 66; RESP 14; TEMP 98.1
== END 2024-06-30 14:46 | disposition home or self-care (01) ==
LOC: EDH 11:23
DX: K40.90 Unilateral inguinal hernia, without obstruction or gangrene, not specified as recurrent (principal); E11.9 Type 2 diabetes mellitus without complications; E78.00 Pure hypercholesterolemia, unspecified; I10 Essential (primary) hypertension; I25.10 Atherosclerotic heart disease of native coronary artery without angina pectoris; Z79.82 Long term (current) use of aspirin; Z79.899 Other long term (current) drug therapy; Z95.1 Presence of aortocoronary bypass graft; Z95.810 Presence of automatic (implantable) cardiac defibrillator
CPT/HCPCS: 76882

== ENCOUNTER 2024-10-23 23:12 | Observation (INO) | payer OTHER, MEDICARE ==
[~2024-10-23] VITALS: Ht 167.6 cm; Wt 62.1 kg
--- NOTE | 2024-10-23 23:59 | ERN ---
ED Note History of Present Illness Stated Complaint: HEADACHE, NON COMLIANCE WITH RX Chief Complaint: Hypertension Time Seen by MD: 23:20 Dictation: This is a 74-year-old male with a known history of multiple medical problems extremely noncompliant with a antihypertensives came in complaining of a severe headache since 7:00 p.m.. He does not remember any of his antihypertensives. He also reports a pressure behind his eyes. As per EMS patient received 5 mg of metoprolol IV. No history of loss of consciousness, facial droop, no slurred speech, no motor weakness or seizure activity. No diplopia or blurred vision Temperature 97.5 pulse 97 respirations 16 blood pressure 201/98 with a pulse oximetry of 98% on room air His chronic medical problems include coronary artery disease status post CABG, diabetes mellitus, hypertension previous history of CVA and pacemaker Allergies: Coded Allergies: No Known Drug Allergies (Unverified Allergy, Unknown, 02/11/22) Home Meds Active Scripts Metoprolol Tartrate (Lopressor) 25 Mg Tab, 50 MG PO BID, #60 TAB 0 Refills Prov:ROSE MCDONNELL MD 01/25/22 Amlodipine Besylate (Norvasc 5Mg Tab) 5 Mg Tablet, 10 MG PO DAILY, #30 TAB 0 Refills Prov:ROSE MCDONNELL MD 01/25/22 Aspirin (ASPIRIN 81MG CHEW TAB) 81 Mg Tab.chew, 81 MG PO DAILY for 30 Days, #30 TAB.CHEW 3 Refills Prov:ROSE MCDONNELL MD 01/25/22 Reported Medications Gabapentin (Neurontin) 300 Mg Capsule, 300 MG PO TID, CAP 02/11/22 Past Medical History Past Medical History: CAD, Diabetes-Type II, High Cholesterol, Hypertension Surgical History: CABG, Pacer/AICD Social History: Other RN Note Reviewed/Agreed w/PFSH: Yes Review of System Dictation Constitutional: Negative for fever,chills, and weight loss Eyes: Negative for injury, pain,redness, and discharge ENT: Negative for injury,pain or swelling Cardiovascular: Negative for chest pain, palpitations, and edema Respiratory: Negative for shortness of breath, cough, and wheezing, Abdomen/GI: Negative for abdominal pain, nausea, vomiting, diarrhea, and constipation Back: Negative for injury and pain : Negative for injury, bleeding and discharge MS/Extremity: Negative for injury and deformity Skin: Negative for rash, and discoloration Neuro: Pause for headache, denied weakness, numbness, tingling, and seizure Psych: Negative for suicide ideation, homicidal ideation, and hallucinations Initial Vital Sign VS Vital Signs Date Time Temp Pulse Resp B/P (MAP) Pulse Ox O2 Delivery O2 Flow Rate FiO2 10/23/24 23:14 97.5 97 16 201/98 98 Room Air* 0 21 Physical Exam Dictation General: awake, alert, NAD Head/Face: Normocephalic, atraumatic Eyes: PERRL, EOMI, vision at baseline ENT: oral cavity clear, TMs clear, no signs of infection Neck: Trachea midline, supple, no nuchal rigidity Cardiovascular: RRR, normal S1/S2, No MRGs, no JVD Respiratory: CTAB, no respiratory distress, No rales or wheezes Abdomen: Soft, non-tender, non-distended, normal bowel sounds, no guarding or rebound. Skin: Warm, dry, normal turgor, no rash MS/Extremity: Pulses equal, no cyanosis, neurovascular intact, FROM Neuro: COAx4, GCS 15, strength 5/5, CN 2-12 intact, normal cerebellar exam, normal gait, Psych: Normal behavior, mood, and affect normal Extremities-trace edema without any palpable cords, Homans sign is negative Results (Laboratory/Radiology) Laboratory/Radiology Laboratory Tests Test 10/24/24 00:04 10/24/24 00:08 Urine Color COLORLESS (YELLOW) Urine Appearance CLEAR (CLEAR) Urine pH 7.0 (5.0-8.0) Urine Specific [place] 1.008 (1.001-1.031) Urine Protein 200 mg/dL (NEGATIVE) H Urine Glucose (UA) 150 mg/dL (NEGATIVE) H Urine Ketones NEGATIVE mg/dL (NEGATIVE) Urine Occult Blood SMALL (NEGATIVE) H Urine Nitrate NEGATIVE (NEGATIVE) Urine Bilirubin NEGATIVE mg/dL (NEGATIVE) Urine Urobilinogen 0.2 mg/dL (0.2-1.0) Urine Leukocyte Esterase NEGATIVE Abby/uL Urine RBC 2-5 /HPF (0-1) H Urine WBC None /HPF (0-1) Urine Squamous Epithelial Cells RARE /HPF (0-2) Urine Bacteria RARE /HPF (None Seen) White Blood Count 7.1 K/uL (4.8-10.8) Red Blood Count 4.12 MIL/uL (4.50-6.20) L Hemoglobin 12.7 g/dL (14.0-18.0) L Hematocrit 37.1 % (42-54) L Mean Corpuscular Volume 90.0 fL (79-99) Mean Corpuscular Hemoglobin 30.8 pg (27.0-33.0) Mean Corpuscular Hemoglobin Concent 34.2 g/dL (32.0-36.0) Red Cell Distribution Width 12.4 % (11.0-15.5) Platelet Count 178 K/uL (130-400) Mean Platelet Volume 11.2 fL (7.5-10.5) H Immature Granulocyte % (Auto) 0.1 % (0-1) Neutrophils (%) (Auto) 65.5 % (40.0-77.0) Lymphocytes (%) (Auto) 21.4 % (21.0-51.0) Monocytes (%) (Auto) 7.7 % (3.0-13.0) Eosinophils (%) (Auto) 4.2 % (0.0-8.0) Basophils (%) (Auto) 1.1 % (0.0-5.0) Neutrophils # (Auto) 4.7 K/uL (1.8-7.7) Lymphocytes # (Auto) 1.5 K/uL (1.0-4.8) Monocytes # (Auto) 0.6 K/uL (0.1-1.0) Eosinophils # (Auto) 0.30 K/uL (0.00-0.70) Basophils # (Auto) 0.08 K/uL (0.00-0.20) Absolute Immature Granulocyte (auto 0.01 K/uL (0-1) Nucleated Red Blood Cells 0.0 % (0.0-0.19) Labs Reviewed?: Yes ED Course ED Course Orders Procedure Category Date Status Time Cbc With Differential LAB 10/23/24 Complete 23:53 Pt And Ptt LAB 10/23/24 In Process 23:53 Alcohol, Blood LAB 10/23/24 In Process 23:52 Cardiac Panel LAB 10/23/24 In Process 23:52 B-Type Natriuretic LAB 10/23/24 In Process Peptide 23:52 Urinalysis Profile LAB 10/23/24 Complete 23:52 Ct Head/Brain W/O CT 10/23/24 Taken Contrast 23:52 12 Lead Ekg Tracing- EKG 10/23/24 Logged Technical 23:52 Chest 1vw RAD 10/23/24 Logged 23:52 Comprehensive LAB 10/24/24 In Process Metabolic Panel 00:08 Hydralazine 20mg Inj PHA 10/24/24 Verified (Apresoline 20mg In 01:00 Morphine 2mg Syg PHA 10/24/24 Verified (Morphine 2mg Syg) 01:00 Vital Signs Date Time Temp Pulse Resp B/P (MAP) Pulse Ox O2 Delivery O2 Flow Rate FiO2 10/23/24 23:57 68 16 195/87 96 Room Air* 0 21 10/23/24 23:14 97.5 97 16 201/98 98 Room Air 0 10/23/24 23:14 97.5 97 16 201/98 98 Room Air* 0 21 We will perform diagnostic labs, advanced imaging and administer medications according to the patient's complaint. Once the results are available, will review and personally interpreted the labs to rule out any acute life- threatening emergency the trach require immediate intervention and treatment. I will then re-evaluate the patient after treatment and diagnostic exams have return to determine whether the patient requires any further testing, can safely be discharged home or need further admission to hospital for additional treatment and evaluation. Medical Decision Making MDM MDM: Differential diagnosis: Rationale: Tests considered and ordered secondary to shared decision making include: labs, ECG and radiology Previous outside records reviewed: Old ER visits. Risk of complication and/or morbidity or mortality of patient management: None Medications-Per medication reconciliation Need for hospitalization: Patient does meet criteria for hospitalization. Need for emergency major/minor surgery: No There are no social concerns with this patient. Prescription drug management Prescriptions will include symptomatic care Patient's prior external medical records from other ER visits were reviewed by me as indicated. Prior testing and results from previous visits were reviewed. Prior tests were taken into account with medical decision making and resource utilization, independent historian/historians were used to obtain complete medical history. I independently interpreted the test that were performed, results were reviewed by me and considered findings on radiology if ordered. Medical management and examination interpretation discussions were had by me with other qualified healthcare professionals as indicated for the patient's care. Problem List Problem List: (1) Hypertensive emergency DX & DISP Disposition: Inpatient Decision to Admit Time: 23:59 Departure Impression: Primary Impression: Hypertensive emergency Condition: Stable Additional Instructions: Patient was informed of all the diagnostic labs and procedures conducted in the emergency room today and demonstrated understanding of the results. I personally reviewed and interpreted all the diagnostic exams performed in the ER today. The patient will be admitted to the hospital for further treatment and evaluation. Disposition-admit to facility Condition-stable/guarded Course-uncertain at this time Pain status-decreased Assessment-exam unchanged Admission Certification- I certify that the patients status is appropriate and is based on my best clinical judgment and the patient's condition as documented in the medical records Referrals: EMILY MTZ MD (PCP) MARK SCHRADER MD Oct 23, 2024 23:59
[2024-10-24 00:19] LABS: APPEARANCE,URINE CLEAR (CLEAR); BILIRUBIN,URINE NEGATIVE (NEGATIVE); COLOR,URINE COLORLESS (YELLOW); GLUCOSE, URINE (UA) 150 mg/dL (NEGATIVE); KETONES,URINE NEGATIVE (NEGATIVE); LEUKOCYTE ESTERASE ,URINE NEGATIVE Leu/uL (NEGATIVE); NITRATE,URINE NEGATIVE (NEGATIVE); OCCULT BLOOD,URINE SMALL (NEGATIVE); PROTEIN,URINE 200 mg/dL (NEGATIVE); UROBILINOGEN,URINE 0.2 mg/dL (0.2-1.0)
[2024-10-24 00:20] LABS: ADD UA MICROSCOPIC YES
[2024-10-24 00:23] LABS: BACTERIA,URINE RARE /HPF (None Seen); SQUAMOUS EPITHELIAL CELL,UR RARE /HPF (0-2)
[2024-10-24 00:33] LABS: BASOPHILS # (AUTO) 0.08 K/uL (0.00-0.20); BASOPHILS % (AUTO) 1.1 % (0.0-5.0); EOSINOPHILS % (AUTO) 4.2 % (0.0-8.0); HEMATOCRIT 37.1 % (42-54); IMMATURE GRANULOCYTE ABSOLUTE 0.01 K/uL (0-1); LYMPHOCYTES # (AUTO) 1.5 K/uL (1.0-4.8); LYMPHOCYTES % (AUTO) 21.4 % (21.0-51.0); MEAN CORPUSCULAR HEMOGLOBIN 30.8 pg (27.0-33.0); MEAN CORPUSCULAR HGB CONC 34.2 g/dL (32.0-36.0); MONOCYTES # (AUTO) 0.6 K/uL (0.1-1.0); MONOCYTES % (AUTO) 7.7 % (3.0-13.0); NEUTROPHILS # (AUTO) 4.7 K/uL (1.8-7.7); NEUTROPHILS % (AUTO) 65.5 % (40.0-77.0); PLATELET COUNT (AUTO) 178 K/uL (130-400); RED BLOOD CELL COUNT(AUTO) 4.12 MIL/uL (4.50-6.20); RED CELL DISTRIBUTION WIDTH 12.4 % (11.0-15.5); WHITE BLOOD COUNT (AUTO) 7.1 K/uL (4.8-10.8)
[2024-10-24 00:42] LABS: INR 0.95 (0.85-1.15); PROTHROMBIN TIME 10.7 SEC (9.6-11.6)
[2024-10-24 00:43] LABS: PARTIAL THROMBOPLASTIN TIME 26.2 SEC (26.3-35.5)
[2024-10-24] MEDS: morPHINE 2 MG SYG IVP ONE (00:44)
[2024-10-24] MEDS: hydrALAZine 20MG/ML VIAL IV ONE (00:48)
[2024-10-24 00:49] LABS: ALBUMIN 2.7 g/dL (3.5-5.0); BILIRUBIN,TOTAL 0.5 mg/dL (0.2-1.0); CREATININE 3.3 mg/dL (0.5-1.3); TOTAL PROTEIN, SERUM 6.6 g/dL (6.0-8.3)
--- NOTE | 2024-10-24 00:50 | HP ---
[facility] HISTORY AND PHYSICAL Date of Service: Oct 24, 2024 Time of Service: 00:49 Supervising physician: Dr. Marin and Dr. Neo Mehta HISTORY OF PRESENT ILLNESS: Mr. Sotelo is a 74-year-old male with a known history of CAD s/p CABG & s/p pacemaker, DM, HTN, previous history of CVA who presented [place] [facility] [place] evaluation of severe headache onset 19:00. The patient presented to the ED with a blood pressure of 201/98, heart rate 97. The patient is noncompliant with a antihypertensives. He does not remember any of his antihypertensives. He also reports a pressure behind his eyes. As per EMS patient received 5 mg of metoprolol IV. No history of loss of consciousness, facial droop, no slurred speech, no motor weakness or seizure activity. No diplopia or blurred vision K 2.8, GFR 19 BNP a 1510. In ED the patient was administer hydralazine 10 mg IV x2 doses, morphine2 mg IV, potassium 10 mEq. The patient was assessed by me in room ED 14. Patient's blood pressure was 190s systolic. The patient reports that he did not take his medicine on 09/22/2024. He also reports that he has never been told that he has low renal function. He states he follows with solution engineer Dr. Massey in saw Dr. Massey a week ago. He reports that he has not seen a electric vehicle electrician. I informed the patient of labs, diagnostics, and plan of care. The patient verbalized understanding and is in agreement with the plan. Plan and assessment are listed below. REVIEW OF SYSTEMS 12-point ROS reviewed with the patient. Pertinent positives mentioned above. Otherwise negative, non-pertinent, or noncontributory. Past Medical History: CAD, Diabetes-Type II, High Cholesterol, Hypertension Surgical History: CABG, Pacer/AICD Social history: Denied alcohol, tobacco, illicit drug use. Coded Allergies: No Known Drug Allergies (Unverified Allergy, Unknown, 02/11/22) PHYSICAL EXAM GENERAL APPEARANCE: The patient is awake, alert, and oriented, in no acute cardiopulmonary distress. NEUROLOGICAL: Cranial nerves II-XII grossly intact. Motor is 5/5 in bilateral upper and lower extremities proximal to distal. No sensory deficits. HEENT: Face is symmetric. Pupils are equal and reactive. Extraocular movements are intact. NECK: Supple. No JVD. No thyromegaly. No submental, submandibular, pre- /postauricular, occipital or supraclavicular lymphadenopathy. CHEST: Normal chest expansion. No Telemetry. LUNGS: Absence of any rales, rhonchi or any wheezing. CARDIOVASCULAR: Regular. S1 and S2 normal. No appreciable rubs, murmurs or gallops. ABDOMEN: Soft, nontender, and nondistended. There is no rebound, voluntary guarding, or rigidity. : Deferred. No Yates. EXTREMITIES: Non-edematous and not cyanotic. No clubbing. Good capillary refill. SKIN: No skin breakdown. Vital Sign (Last 24 Hours) 10/23/24 10/23/24 23:14 23:57 Temp 97.5 Pulse 68 Resp 16 B/P (MAP) 195/87 Pulse Ox 96 O2 Delivery Room Air* O2 Flow Rate 0 FiO2 21 LABS: Laboratory: Test 10/24/24 00:08 10/24/24 00:04 Range/Units White Blood Count 7.1 4.8-10.8 K/uL Red Blood Count 4.12 L 4.50-6.20 MIL/uL Hemoglobin 12.7 L 14.0-18.0 g/dL Hematocrit 37.1 L 42-54 % Mean Corpuscular Volume 90.0 79-99 fL Mean Corpuscular Hemoglobin 30.8 27.0-33.0 pg Mean Corpuscular Hemoglobin Concent 34.2 32.0-36.0 g/dL Red Cell Distribution Width 12.4 11.0-15.5 % Platelet Count 178 130-400 K/uL Mean Platelet Volume 11.2 H 7.5-10.5 fL Immature Granulocyte % (Auto) 0.1 0-1 % Neutrophils (%) (Auto) 65.5 40.0-77.0 % Lymphocytes (%) (Auto) 21.4 21.0-51.0 % Monocytes (%) (Auto) 7.7 3.0-13.0 % Eosinophils (%) (Auto) 4.2 0.0-8.0 % Basophils (%) (Auto) 1.1 0.0-5.0 % Neutrophils # (Auto) 4.7 1.8-7.7 K/uL Lymphocytes # (Auto) 1.5 1.0-4.8 K/uL Monocytes # (Auto) 0.6 0.1-1.0 K/uL Eosinophils # (Auto) 0.30 0.00-0.70 K/uL Basophils # (Auto) 0.08 0.00-0.20 K/uL Absolute Immature Granulocyte (auto 0.01 0-1 K/uL Nucleated Red Blood Cells 0.0 0.0-0.19 % Prothrombin Time 10.7 9.6-11.6 SEC Prothromb Time International Ratio 0.95 0.85-1.15 Activated Partial Thromboplast Time 26.2 L 26.3-35.5 SEC Urine Color COLORLESS YELLOW Urine Appearance CLEAR CLEAR Urine pH 7.0 5.0-8.0 Urine Specific [place] 1.008 1.001-1.031 Urine Protein 200 H NEGATIVE mg/dL Urine Glucose (UA) 150 H NEGATIVE mg/dL Urine Ketones NEGATIVE NEGATIVE mg/dL Urine Occult Blood SMALL H NEGATIVE Urine Nitrate NEGATIVE NEGATIVE Urine Bilirubin NEGATIVE NEGATIVE mg/dL Urine Urobilinogen 0.2 0.2-1.0 mg/dL Urine Leukocyte Esterase NEGATIVE NEGATIVE Abby/uL Urine RBC 2-5 H 0-1 /HPF Urine WBC None 0-1 /HPF Urine Squamous Epithelial Cells RARE 0-2 /HPF Urine Bacteria RARE None Seen /HPF DIAGNOSTICS / RADIOLOGY: [ ] ASSESSMENT: Hypertensive emergency, POA CHF exacerbation, POA Fluid overload/elevated BNP @ 1510 Severe hypokalemia, POA Anemia of chronic disease Acute on chronic renal failure, GFR 19 Diabetes mellitus with hyperglycemia Hypoalbuminemia Chronic problem list: CAD s/p CABG, s/p pacemaker, DM, HTN, previous history of stroke PLAN: -Admit to medical floor with continuous telemetry monitoring. -Troponin levels and EKG series. -Cardiology consult in the am exacerbation of CHF. -Consult nephrology in a.m. for acute on chronic renal failure. -2D echo in a.m. with heart clinic to read. -PRN medications for pain management, fever, N/V, constipation, hypertension. -Oxygen supplement as needed to maintain oxygen levels equal to or greater than 92% -Nitroglycerin sublingual as needed chest pain. -Start Isosorbide Dinitrate, aspirin, Plavix, Eliquis, metoprolol tartrate per external med rec -Start rest of home medications once available. -Aspirin 81 mg p.o. daily. -Atorvastatin 40 mg PO daily. -Lasix 40 mg IV BID. -Strict I&O. -Fluid restriction 1,200 mls in 24 hours. -Daily weight. -Blood pressure checks every 4 hours and as needed. -Reconcile home medications once available. -Glucometer checks before meals and at bedtime with insulin regular sliding scale. -Monitor renal and liver function, monitor electrolytes and treat accordingly. -AM labs: CBC, BMP, trop, mag, phos, A1C, TSH. -DVT and GI prophylaxis: Lovenox and Protonix. ADVANCED CARE PLANNING 1. Which of the following were discussed? Hospice Care - No Therapeutic options - Yes Advance Directives - Yes Other discussions - 2. Discussed with who? Patient 3. Voluntary nature of this service was explained to the patient? Yes 4. Amount of time spent - __ over 35 minute 5. Reviewed by Physician? (if this service was performed by NPP) Yes ADDENDUM: ATTENDING PHYSICIAN ATTESTATION: I have seen and discussed this patient with the midlevel and I agree with their plan. See my addendum for updates to the medical plan MD LANEY Peña [facility] Oct 24, 2024 00:50 CONCEPCION MARIN MD Oct 24, 2024 20:16
--- NOTE | 2024-10-24 00:52 | HMCIMG ---
CT HEAD/BRAIN W/O CONTRAST HISTORY: Headaches COMPARISON: None TECHNIQUE: Multiple sequential axial images of the head were obtained from the base of the skull through vertex. Patient was not given contrast through intravenous route. FINDINGS: The ventricles and extraventricular CSF spaces are dilated consistent with cerebral atrophy. Nonspecific white matter changes seen. There is no midline shift, mass effect or herniation. No acute intracranial bleed is seen. Visualized portion of the paranasal sinuses are grossly within normal limits. IMPRESSION: 1. No acute intracranial bleed is seen. 2. Atrophy with white matter changes. CT was performed with one or more following dose reduction techniques: automated exposure control, adjustment of the mA and kv according to patient's size, or use of a iterative reconstruction technique.
[2024-10-24 00:53] LABS: POTASSIUM 2.8 mmol/L (3.5-5.1)
[2024-10-24] MEDS ORDERED: hydrALAZine 20MG/ML VIAL IM ONE (01:00)
[2024-10-24] MEDS ORDERED: LACTULOSE 20 GM/30 ML UDCUP PO PRN (01:00)
[2024-10-24] MEDS ORDERED: doCUSate SODIUM 100 MG CAP PO PRN (01:00)
[2024-10-24] MEDS ORDERED: TEMAZepam 15 MG CAPSULE PO PRN (01:00)
[2024-10-24] MEDS ORDERED: acetaMINOPHEN 650 MG SUPPOSITORY RC PRN (01:00)
[2024-10-24] MEDS ORDERED: acetaMINOPHEN 325 MG TAB PO PRN (01:00)
[2024-10-24] MEDS ORDERED: ondanSETRON 4MG INJ IVP PRN (01:00)
[2024-10-24] MEDS: PoTASSium chloRIDE 10MEQ/100ML 100 ML IV ONE (01:36)
--- NOTE | 2024-10-24 01:45 | NUR ---
PATIENT DID NOT BRING HOME MEDICATIONS
[2024-10-24] MEDS: cloNIDine HCL 0.2 MG TABLET PO ONE (02:09)
--- NOTE | 2024-10-24 05:32 | EKG ---
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 : [id number] Requested By: MARK SCHRADER Order Number: [id number] Reading MD: Franklyn Nickerson Measurements Intervals [place] Rate: 69 P: 0 [place]: 185 QRS: -67 QRSD: 160 T: 104 QT: 454 QTc: 486 Interpretive Statements Atrial-paced complexes Right bundle branch block Compared to ECG 02/27/2022 07:24:11 Ventricular-paced complex(es) or rhythm no longer present Left anterior fascicular block no longer present Bifascicular block no longer present Myocardial infarct finding no longer present Electronically Signed On 10-24-2024 18:23:07 DELIVERY ANALYST by Franklyn Nickerson Please click the below link to view image of tracing.
[2024-10-24] MEDS: INSULIN humuLIN R 100 UNIT/ML 3ML SQ SCH (07:30)
[2024-10-24] MEDS: FAMOTIDINE 20MG TAB PO SCH (07:38)
[2024-10-24] MEDS: ENOXAPARIN SODIUM 30 MG/0.3 ML SQ SCH (07:38)
[2024-10-24] MEDS: hydrALAZine 20MG/ML VIAL IV PRN (07:39)
[2024-10-24] MEDS ORDERED: metoPROLOL tartRATE 50 MG TAB PO SCH (08:30)
[2024-10-24] MEDS: metoPROLOL tartRATE 50 MG TAB PO SCH (08:30)
[2024-10-24 08:36] LABS: POTASSIUM 2.8 mmol/L (3.5-5.1)
[2024-10-24] MEDS ORDERED: PoTASSium chl 10% ELIXIR 20MEQ 20 MEQ/15 ML UDCUP PO PRN (09:00)
[2024-10-24] MEDS: ASPIRIN 81MG CHEW TAB PO SCH (09:24)
[2024-10-24] MEDS: APIXaban 2.5 MG TABLET PO SCH (09:24)
[2024-10-24] MEDS: cloPIDOgrel 75MG TAB PO SCH (09:25)
[2024-10-24] MEDS: PoTASSium chloRIDE 20MEQ/100ML 100 ML IV PRN (09:25)
--- NOTE | 2024-10-24 09:27 | HMCIMG ---
Exam Type: CHEST 1VW Clinical Information: eval chf Comparison: None Findings: Status post median sternotomy. Cardiomegaly. Left cardiac pacemaker. There is cardiomegaly. There is prominence of the vascular markings consistent with pulmonary venous congestion. IMPRESSION: Findings consistent with pulmonary venous congestion.
[2024-10-24 09:41] LABS: HEMATOCRIT 38.3 % (42-54); MEAN CORPUSCULAR HEMOGLOBIN 30.9 pg (27.0-33.0); MEAN CORPUSCULAR HGB CONC 34.5 g/dL (32.0-36.0); MEAN CORPUSCULAR VOLUME 89.7 fL (79-99); RED BLOOD CELL COUNT(AUTO) 4.27 MIL/uL (4.50-6.20); RED CELL DISTRIBUTION WIDTH 12.5 % (11.0-15.5); WHITE BLOOD COUNT (AUTO) 6.8 K/uL (4.8-10.8)
[2024-10-24 10:05] LABS: ALBUMIN 2.6 g/dL (3.5-5.0); BILIRUBIN,TOTAL 0.5 mg/dL (0.2-1.0); PHOSPHORUS 3.2 mg/dL (2.5-4.9); THYROID STIMULATING HORMONE 3.5 uIU/mL (0.36-3.74); TOTAL PROTEIN, SERUM 6.3 g/dL (6.0-8.3)
[2024-10-24 10:16] LABS: HEMOGLOBIN A1C 8.7 % (4.0-6.0)
--- NOTE | 2024-10-24 10:19 | NUR ---
SPOKE TO STAFF WITH DR. SABA/ [facility] OFFICE AT [phone], SHE WILL NOTIFY RN TO LET DR. HINDS KNOW OF PENDING CONSULT.
--- NOTE | 2024-10-24 11:26 | NUR ---
830 AM LOPRESSOR NOT GIVEN HYDRALAZINE ADMIN AND LOPRESSOR HELD AT THE TIME DUE TO BP
[2024-10-24] MEDS: hydrALAZine 25MG TABLET PO SCH (11:31)
[2024-10-24] MEDS: PoTASSium chloRIDE 20MEQ ER 20 MEQ ERTAB PO ONE (12:39)
--- NOTE | 2024-10-24 14:09 | NUR ---
DCP Patient lives in a rented apartment with girlfriend, Vidya Mazariegos unknown phone number. He receives $85 in food stamps. States independent and drives self. States able to complete ADL's on his own. States uses cane, walker and bedside commodes as medical devices. Denies home health and dialysis services. PCP - Desmond Sprague MD. Pharmacy - [facility]. Denies needs at discharge to home and provider, Lesly Vinsonar [phone] and continue home management three hours per day. Addendum: 10/24/24 at 1415 by BERTO PATTERSON RN CM Amended: Links added.
[2024-10-24] MEDS: PoTASSium chloRIDE 20MEQ ER 20 MEQ ERTAB PO PRN (16:26)
--- NOTE | 2024-10-24 17:30 | NUR ---
DR. MARIN WAS PAGED AND ADVISED THAT PT WANTS TO LEAVE. STATES HE ROUNDED ON PT THIS MORNING AND ADVISED PT THAT IT WOULD A BE A WAIT UNTIL HE GOT A ROOM BUT THAT HE COULD NOT DISCHARGE PT AT THAT TIME. DR. MARIN ADVISED THAT HE IS NOT AT FACILITY AND CANNOT COME ROUND WITH PT AT THIS TIME AND IF PT WANTS TO LEAVE HE WOULD BE LEAVING AGAINST MEDICAL ADVISE. PT WAS INFORMED. PT STATES HE DOES NOT WANT TO REMAIN IN HOSPITAL AND IS WILLING TO SIGN AMA FORM.
[2024-10-24 17:38] VITALS: BP 139/72; PULSE 74; RESP 18; TEMP 98.2; O2SAT 98
--- NOTE | 2024-10-24 17:48 | HMCSR ---
APPROVED REPORT EXAM: Two-dimensional and M-mode echocardiogram with Doppler and color Doppler. INDICATION ICD: Hypertensive emergency 2D Dimensions RVDd4.3 cmLVEF(%)34.7 (>50%)LVED Vol(simp.)156.0 mL IVSd1.5 (0.7-1.1cm)FS(%)17 %LVES Vol(simp.)97.7 mL LVDd5.9 (3.8-5.6cm)LA (2D)4.4 (1.6-4.0cm)LVEF(%, simp.)37 % PWd1.2 (0.7-1.1cm)Ao Root(2D)3.4 (2.0-3.7cm)LA ESV INDEX (4CH)27.60 mL/m2 IVSs1.7 cmLVOT diam2.3 (1.8-2.4cm)LA ESV INDEX (2CH)44.70 mL/m2 LVDs4.9 (2.5-4.0cm)LA ESV INDEX (BP)35.10 mL/m2 PWs1.3 cm Deformation Strain Apical 416.0 % Apical 212.0 % Apical 315.0 % Global Wftkla51.0 % M-Mode Dimensions EPSS1.8 cm LA (MM)4.1 (1.6-4.0cm) Ao Root(MM)3.4 (2.0-3.7cm) Aortic Valve AoV VTI0.4 mAo Mean GR8.0 mmHgLVOT VTI0.26 m JANIS (VMAX)2.5 cm2AVA (VTI) 2.5 cm2 Mitral Valve MV E Pfvn703.4 cm/sDECEL Yrqd726 ms MV A Vmax63.5 cm/sP 1/2 T93 ms E/A ratio1.6MVA (PHT)2.4 cm2 TDI E/E' Arrlbl93.6E/E' Kkqeuky78.8 Medial E' Peak V2.60 cm/sLateral E' Peak V4.60 cm/s Left Ventricle The left ventricle is normal size. Spontaneous contrast noted in left ventricle. GLS -15.0%. Moderate concentric left ventricular hypertrophy.. LVEF is 45-50%. The left ventricular diastolic function i s normal. Right Ventricle The right ventricle is mildly dilated. Right ventricular systolic function is moderately reduced. Dev ice lead is present in the right ventricle. Atria The left atrium is borderline dilated. The right atrium is moderately dilated. Aortic Valve Aortic valve is trileaflet. Non coronary cusp leaflet is heavily thickened with restricted excursion. No aortic regurgitation is present. There is no aortic valvular stenosis. Mitral Valve The mitral valve is normal in structure. Mildly thickened. There is trace of mitral valve regurgitati on noted. There is no mitral valve stenosis. Tricuspid Valve The tricuspid valve is normal in structure. There is trace of tricuspid valve regurgitation noted. Pulmonic Valve The pulmonary valve is normal in structure. There is no pulmonic valvular regurgitation. Great Vessels The aortic root is normal in size. The IVC is normal in size and collapses >50% with inspiration. Pericardium There is no pericardial effusion. Other Information Quality : Adequate Conclusion Moderate concentric left ventricular hypertrophy.. LVEF is 45-50%. The right ventricle is mildly dilated. Right ventricular systolic function is moderately reduced. The right atrium is moderately dilated. Aortic valve is trileaflet. Non coronary cusp leaflet is heavily thickened with restricted excursion. There is trace of mitral valve regurgitation noted. The IVC is normal in size and collapses >50% with inspiration. The mitral valve is normal in structure. Mildly thickened.
--- NOTE | 2024-10-24 20:21 | DS ---
Discharge Summary Hospital Course Summary: 74-year-old male with a known history of CAD s/p CABG & s/p pacemaker, DM, HTN, previous history of CVA who presented to [facility] ED for evaluation of severe headache onset 19:00. The patient presented to the ED with a blood pressure of 201/98, heart rate 97. The patient is noncompliant with a antihypertensives. He does not remember any of his antihypertensives. He also reports a pressure behind his eyes. As per EMS patient received 5 mg of metoprolol IV. No history of loss of consciousness, facial droop, no slurred speech, no motor weakness or seizure activity. No diplopia or blurred vision. He was admitted, started on antihypertensive medications and cardiology was consulted for further recommendations. He also had elevated creatinine with no knowledge of renal dysfunction in the past. Nephrology was consulted for further recommendations. Later in the day he stated he felt better and wanted to go home. He had not been assessed by cardiology yet and his blood pressure, although improved with still slightly elevated. He was advised against leaving, however he insisted and left against medical advice. Rn Clinical(s): Cardiology Nephrology Procedure(s): Echocardiogram: Conclusion Moderate concentric left ventricular hypertrophy.. LVEF is 45-50%. The right ventricle is mildly dilated. Right ventricular systolic function is moderately reduced. The right atrium is moderately dilated. Aortic valve is trileaflet. Non coronary cusp leaflet is heavily thickened with restricted excursion. There is trace of mitral valve regurgitation noted. The IVC is normal in size and collapses >50% with inspiration. The mitral valve is normal in structure. Mildly thickened. CT HEAD/BRAIN W/O CONTRAST HISTORY: Headaches COMPARISON: None TECHNIQUE: Multiple sequential axial images of the head were obtained from the base of the skull through vertex. Patient was not given contrast through intravenous route. FINDINGS: The ventricles and extraventricular CSF spaces are dilated consistent with cerebral atrophy. Nonspecific white matter changes seen. There is no midline shift, mass effect or herniation. No acute intracranial bleed is seen. Visualized portion of the paranasal sinuses are grossly within normal limits. IMPRESSION: 1. No acute intracranial bleed is seen. 2. Atrophy with white matter changes. Assessment/Plan: Hypertensive emergency, POA CHF exacerbation, ruled out POA Fluid overload/elevated BNP @ 1510 Severe hypokalemia, POA Anemia of chronic disease Acute on chronic renal failure, GFR 19 Diabetes mellitus with hyperglycemia Hypoalbuminemia Chronic problem list: CAD s/p CABG, s/p pacemaker, DM, HTN, previous history of stroke Discharge Instructions: Patient left AMA Home Medications: Active Scripts Metoprolol Tartrate (Lopressor) 25 Mg Tab, 50 MG PO BID, #60 TAB 0 Refills Prov:ROSE MCDONNELL MD 01/25/22 Amlodipine Besylate (Norvasc 5Mg Tab) 5 Mg Tablet, 10 MG PO DAILY, #30 TAB 0 Refills Prov:ROSE MCDONNELL MD 01/25/22 Aspirin (ASPIRIN 81MG CHEW TAB) 81 Mg Tab.chew, 81 MG PO DAILY for 30 Days, #30 TAB.CHEW 3 Refills Prov:ROSE MCDONNELL MD 01/25/22 Reported Medications Gabapentin (Neurontin) 300 Mg Capsule, 300 MG PO TID, CAP 02/11/22 Time spent arranging discharge: 31-60 minutes CONCEPCION MARIN MD Oct 24, 2024 20:21
[2024-10-25] MEDS ORDERED: PoTASSium chloRIDE 20MEQ ER 20 MEQ ERTAB PO SCH (01:00)
--- NOTE | 2024-10-25 02:11 | CONS ---
The patient has been brought to the Emergency Room and has been found to have renal failure and leaving against medical advices. HISTORY OF PRESENT ILLNESS: This patient is a 74-year-old with history of coronary artery disease, CABG, pacemaker, diabetes, hypertension, who came to the Emergency Room for severe headache. The patient has been found to have elevated blood pressure, elevated creatinine. The patient has received pain medicine. The patient's potassium was low. Further workup is needed. No other associated finding. No other aggravating or relieving factor. PAST MEDICAL HISTORY: Diabetes, hypertension, hyperlipidemia, anemia, coronary artery disease, and multiple others. PAST SURGICAL HISTORY: As above with CABG, pacemaker, AICD. SOCIAL HISTORY: No smoking, alcohol or drug abuse. ALLERGIES: No allergies. FAMILY HISTORY: Unremarkable for present contacts. REVIEW OF SYSTEMS: CONSTITUTIONAL: The patient has no fever, chills or rigors. HEENT: Has headache. No oral ulcers, sore throat or difficulty swallowing. RESPIRATORY: With no cough, expectoration, hemoptysis, or pleuritic pain. CARDIOVASCULAR: No orthopnea or PND. GASTROINTESTINAL: No nausea, vomiting, or diarrhea. GENITOURINARY: Negative for dysuria or hematuria. DERMATOLOGICAL: No rashes, pruritus, or skin lesion. ENDOCRINE: No polyuria, polydipsia, or polyphagia. PSYCHIATRIC: Negative for anxiety, depression or hallucinations. Other system unchanged. PHYSICAL EXAMINATION: GENERAL: Pale, no other distress. VITAL SIGNS: Blood pressure is 125/62, but has been high up to 200, pulse of 63, respiratory rate 18, afebrile. HEENT: Head is atraumatic, normocephalic. Pupils are round and reactive. Sclerae are anicteric. Conjunctivae not pale. Oral mucosa is not dry. NECK: Supple. No masses, bruits. Thyroid is palpable. Neck has no bruits. CHEST: Shows equal thoracic percussion note being resonant in all areas. CARDIAC: Regular rhythm, no rub, no S3, S4. No parasternal heave. Apical beat is not localized. ABDOMEN: No guarding or tenderness. Bowel sounds are normoactive. No free fluid. EXTREMITIES: No edema. No cyanosis, clubbing. NEUROLOGIC: Awake, alert, nonfocal. No cranial nerve palsies. BACK: No tenderness or back deformities. LABORATORY DATA: We have reviewed labs in detail. BUN of 32, creatinine 3. Low potassium of 2.8. Imaging studies are reviewed. Old records reviewed. PROBLEMS: Renal failure, anemia. The patient has underlying severe hypokalemia severe headache, noncompliance, underlying multiple other comorbidities as detailed. The patient has coronary artery disease, coronary artery bypass graft, previous AICD placement, diabetes and hypertension. PLAN: The patient will need further workup for renal failure and hyperkalemia. The patient came with hypertensive emergency. The patient apparently signing AMA. The patient will need workup for renal artery stenosis, hyperaldosteronism. The patient has further antihypertensives to be adjusted. Intake, output, weight will be monitored. Nonsteroidal drugs to be avoided. Dose of medicine to be adjusted. Continued followup. Nonsteroidal drug and nephrotoxics to be avoided. The patient's condition is critical. The patient's condition is guarded. Seen several times. I will continue to monitor and follow closely. Please avoid contrast and I discussed with other team physicians. Avoid nonsteroidal drug, avoid nephrotoxics. IV Dilaudid can be used for pain 0.5 q.6 h. Old records, external records, imaging studies are personally reviewed. Follow up labs .will be needed. TID: [id number] RECEIPT: [id number] MTDD
== END 2024-10-24 17:41 | disposition left against medical advice (07) ==
LOC: EDBD 23:12 → EDH 23:12 → EDHIP 10-24 00:46
PROVIDERS: ADMIT Internal Medicine; ATTEND Internal Medicine
DX: I16.1 Hypertensive emergency (principal); E87.70 Fluid overload, unspecified; E87.6 Hypokalemia; I13.0 Hypertensive heart and chronic kidney disease with heart failure and stage 1 through stage 4 chronic kidney disease, or unspecified chronic kidney disease; E11.22 Type 2 diabetes mellitus with diabetic chronic kidney disease; N18.9 Chronic kidney disease, unspecified; I50.9 Heart failure, unspecified; E88.09 Other disorders of plasma-protein metabolism, not elsewhere classified; E11.65 Type 2 diabetes mellitus with hyperglycemia; N17.9 Acute kidney failure, unspecified; D63.1 Anemia in chronic kidney disease; I25.10 Atherosclerotic heart disease of native coronary artery without angina pectoris; E78.00 Pure hypercholesterolemia, unspecified; Z91.199 Patient's noncompliance with other medical treatment and regimen due to unspecified reason; Z95.1 Presence of aortocoronary bypass graft; Z86.73 Personal history of transient ischemic attack (TIA), and cerebral infarction without residual deficits; Z79.82 Long term (current) use of aspirin; Z79.899 Other long term (current) drug therapy
CPT/HCPCS: 84132; 80053 ×2; 85027; 99285; 71045; 70450; 93005; 96376; 96372; 96365; 96366; 96375 ×2; 83036; 84443; 82550; 83735; 84100; 84484 ×2; 83880; 85025; 85610; 85730; 82948 ×2; 81001; 36415; 93306; 93356; J1815; G0378 ×16; J2270; J0360 ×2; J1650; J3480 ×2; 96361; 96374

== ENCOUNTER 2025-04-21 09:38 | Day surgery (SDC) | payer MEDICARE, MEDICAID ==
[2025-04-19 13:11] LABS: IMMATURE GRANULOCYTE ABSOLUTE 0.07 K/uL (0-1); NUCLEATED RED BLOOD CELLS 0.0 % (0.0-0.19); PLATELET COUNT (AUTO) 167 K/uL (130-400); RED BLOOD CELL COUNT(AUTO) 4.07 MIL/uL (4.50-6.20); RED CELL DISTRIBUTION WIDTH 14.2 % (11.0-15.5); WHITE BLOOD COUNT (AUTO) 7.9 K/uL (4.8-10.8)
[2025-04-19 13:20] LABS: INR 1.05 (0.85-1.15)
[2025-04-19 13:22] LABS: CREATININE 3.6 mg/dL (0.5-1.3); GLOMERULAR FILTR. RATE CALC 17.0 mL/min (>90); GLUCOSE,RANDOM 194.0 mg/dL (70-105); SODIUM SERUM 141.0 mmol/L (136-145); UREA NITROGEN, BLOOD 36.0 mg/dL (7-18)
[2025-04-19 13:30] VITALS: BP 162/78; PULSE 87; RESP 18; TEMP 97.3
--- NOTE | 2025-04-19 13:35 | EKG ---
[facility] Test Date: 2025-04-19 Test Time: 12:45:09 Pat Name: MARÍA HALE Department: [facility] Room: [facility] Gender: M Vice President Process: [id number] : 1950 Requested By: Dain HUI Order Number: [id number] Reading MD: Pepito Win Measurements Intervals [place] Rate: 70 P: 66 VT: 179 QRS: -65 QRSD: 161 T: 115 QT: 443 QTc: 466 Interpretive Statements Atrial Pacing Possible ventricular pacing Ventricular premature complex RBBB and LAFB Abnrm T, consider ischemia, anterolateral lds Compared to ECG 10/24/2024 00:14:18 Ventricular premature complex(es) now present Left anterior fascicular block now present Possible ischemia now present Atrial-paced complex(es) or rhythm no longer present Electronically Signed On 04-23-2025 10:37:19 CDT by Pepito Win Please click the below link to view image of tracing.
--- NOTE | 2025-04-20 09:55 | NUR ---
RE: LABS REPORTED BMP RESULTS TO RAYNA CHADWICK NP (PATIENT HAS HX OF CKD STAGE iiiB AND iv
--- NOTE | 2025-04-20 09:56 | NUR ---
RE: LABS REPORTED BMP RESULTS TO RAYNA CHADWICK NP (PATIENT HAS HX OF CKD STAGE IIIb AND IV) NO NEW ORDERS RECEIVED.
[~2025-04-21] VITALS: Ht 165.1 cm; Wt 57.7 kg
[~2025-04-21 09:38] MED LIST changes: -AMLO5TAB4 PO; +APIX2.5T PO; -ASPI-1005 PO; +ATOR40TA69 PO; +CLON0.1T PO; +EMPA10TA PO; +ERGO500093 PO; +FURO20TA4 PO; -GABA300C PO; +HYDR25TA67 PO; +INSU100I13 SQ; +ISOS30TA92 PO; +METO-409 PO; -METO25 PO; +MIRT-72 PO
== END 2025-04-21 10:03 | disposition home or self-care (01) ==
LOC: DAH 09:38
PROVIDERS: ATTEND Internal Medicine Cardiovascular Disease
DX: Z01.818 Encounter for other preprocedural examination (principal); R00.1 Bradycardia, unspecified; I49.3 Ventricular premature depolarization; Z79.01 Long term (current) use of anticoagulants; Z53.8 Procedure and treatment not carried out for other reasons
CPT/HCPCS: 36415; 80048; 85025; 85610; 85730; 93005

== ENCOUNTER 2025-06-13 09:28 | Inpatient (IN) | payer OTHER, MEDICARE, MEDICAID ==
[~2025-06-13] VITALS: Ht 170.2 cm; Wt 63.0 kg
--- NOTE | 2025-06-13 09:59 | EKG ---
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
[2025-06-13 10:48] LABS: IMMATURE GRANULOCYTE ABSOLUTE 0.01 K/uL (0-1); NUCLEATED RED BLOOD CELLS 0.0 % (0.0-0.19); PLATELET COUNT (AUTO) 115 K/uL (130-400); RED BLOOD CELL COUNT(AUTO) 3.52 MIL/uL (4.50-6.20); RED CELL DISTRIBUTION WIDTH 13.3 % (11.0-15.5); WHITE BLOOD COUNT (AUTO) 7.8 K/uL (4.8-10.8)
[2025-06-13 10:55] LABS: CREATININE 4.6 mg/dL (0.5-1.3); GLOMERULAR FILTR. RATE CALC 13.0 mL/min (>90); GLUCOSE,RANDOM 253.0 mg/dL (70-105); SODIUM SERUM 133.0 mmol/L (136-145); UREA NITROGEN, BLOOD 53.0 mg/dL (7-18)
[2025-06-13] MEDS: PoTASSium chloRIDE 10MEQ SR 10 MEQ/TAB TAB.SR.24H PO PRN (11:28)
[2025-06-13] MEDS ORDERED: PoTASSium chl 10% ELIXIR 20MEQ 20 MEQ/15 ML UDCUP PO PRN (11:30)
--- NOTE | 2025-06-13 12:04 | NUR ---
PER ER MD, SLING APPLIED TO LEFT ARM. PATIENT VERBALIZES UNDERSTANDING OF SLING USE.
--- NOTE | 2025-06-13 13:29 | NUR ---
DR SALAZAR AT BEDSIDE FOR ORTHO CONSULT.
[2025-06-13 15:17] LABS: AMPHET/METH SCREEN,URINE NEGATIVE (NEGATIVE); BARBITURATE SCREEN, URINE NEGATIVE (NEGATIVE); CANNABINOID SCREEN,URINE NEGATIVE (NEGATIVE); COCAINE SCREEN,URINE NEGATIVE (NEGATIVE)
--- NOTE | 2025-06-13 16:21 | NUR ---
CARDIOLOGY REQUIREMENTS MANAGER WITH DR WICK AT BEDSIDE.
--- NOTE | 2025-06-13 16:26 | HMCIMG ---
EXAM: CR bilateral rib, 6 View. CLINICAL HISTORY: Assess for rib frcature COMPARISON: None provided. FINDINGS: LUNGS: The visualized lungs appear essentially clear. Prior sternotomy. Mild cardiomegaly. Pulmonary vessels are within normal limits. Pacemaker leads overlie the right atrium and right ventricle. PLEURAL SPACES: No pneumothorax evident. No pleural effusions. BONES: No visible acute rib fracture. IMPRESSION: 1. No acute osseous injury. 2. Mild cardiomegaly. /[place]
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
[2025-06-13 16:32] LABS: CREATININE 4.4 mg/dL (0.5-1.3); GLOMERULAR FILTR. RATE CALC 13.0 mL/min (>90); GLUCOSE,RANDOM 200.0 mg/dL (70-105); SODIUM SERUM 136.0 mmol/L (136-145); UREA NITROGEN, BLOOD 55.0 mg/dL (7-18)
--- NOTE | 2025-06-13 16:40 | HMCIMG ---
EXAM: US Retroperitoneum, Renal. CLINICAL HISTORY: ASSESS KIDNEY TECHNIQUE: Real-time ultrasound of the retroperitoneum with image documentation. COMPARISON: None provided. FINDINGS: RIGHT KIDNEY: Normal in size and contour. No renal mass or calculus. No hydronephrosis. LEFT KIDNEY: Normal in size and contour. No renal mass or calculus. No hydronephrosis. Mild abnormal increased renal cortical echogenicity. BLADDER: Unremarkable as visualized. MISCELLANEOUS: The prostate gland is enlarged measuring 74.18ml in volume IMPRESSION: 1. No acute renal or bladder abnormalities. 2. Mild increased left renal cortical echogenicity, nonspecific. 3. Prostatomegaly with prostate volume of 74.18 mL. /Laverne
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
[2025-06-13] MEDS: ASPIRIN 81 MG EC TAB PO SCH (17:24)
[2025-06-13] MEDS ORDERED: MIRT-22 PO (19:22)
[2025-06-13] MEDS ORDERED: GABA-529 PO (19:22)
[2025-06-13] MEDS ORDERED: FAMO20TA8 PO (19:22)
[2025-06-13] MEDS ORDERED: FINE10TA PO (19:22)
--- NOTE | 2025-06-13 20:31 | NUR ---
UA SAMPLE SENT
[2025-06-13 20:47] LABS: APPEARANCE,URINE CLEAR (CLEAR); GLUCOSE, URINE (UA) 300 mg/dL (NEGATIVE); LEUKOCYTE ESTERASE ,URINE NEGATIVE Leu/uL (NEGATIVE); NITRATE,URINE NEGATIVE (NEGATIVE); OCCULT BLOOD,URINE MODERATE (NEGATIVE)
[2025-06-13 20:50] LABS: ADD UA MICROSCOPIC YES; CREATININE,URINE RANDOM 60.39 mg/dL (30-135)
[2025-06-14 08:23] LABS: ASPARTATE AMINOTRANSFERASE 14.0 U/L (10-37); CREATININE 4.3 mg/dL (0.5-1.3); GLOMERULAR FILTR. RATE CALC 14.0 mL/min (>90); GLUCOSE,RANDOM 182.0 mg/dL (70-105); PHOSPHORUS 3.8 mg/dL (2.5-4.9); SODIUM SERUM 136.0 mmol/L (136-145); TOTAL PROTEIN, SERUM 6.0 g/dL (6.0-8.3); UREA NITROGEN, BLOOD 58.0 mg/dL (7-18)
--- NOTE | 2025-06-14 08:47 | NUR ---
DR LOWERY CARDIOLOGY AT BEDSIDE
[2025-06-14 08:53] LABS: % IRON SATURATION 12.4 % (30-44); IRON, SERUM 27.0 mcg/dL (65-175)
[2025-06-14] MEDS: (Finerenone (Kerendia) 10 MG) PO SCH (09:00)
[2025-06-14] MEDS ORDERED: ISOS30TA11 PO (09:52)
--- NOTE | 2025-06-14 10:00 | NUR ---
DR CONTRERAS CONSULT CALLED
[2025-06-14] MEDS: Vitamin B Complex/Vit C/Folic Acid PO SCH (10:29)
[2025-06-14 10:31] LABS: NUCLEATED RED BLOOD CELLS 0.0 % (0.0-0.19); PLATELET COUNT (AUTO) 113.0 K/uL (130-400); RED BLOOD CELL COUNT(AUTO) 3.49 MIL/uL (4.50-6.20); RED CELL DISTRIBUTION WIDTH 13.1 % (11.0-15.5); WHITE BLOOD COUNT (AUTO) 6.1 K/uL (4.8-10.8)
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
[2025-06-14 12:50] VITALS: BP 144/91; PULSE 69; RESP 15; TEMP 97.9
[2025-06-14 13:51] VITALS: O2SAT 92
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
[2025-06-14 16:00] VITALS: BP 138/80; PULSE 61; RESP 15; TEMP 98.2
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
--- NOTE | 2025-06-14 18:03 | HMCSR ---
APPROVED REPORT EXAM: Two-dimensional and M-mode echocardiogram with Doppler and color Doppler. INDICATION ICD: Elevated troponin 2D Dimensions RVDd5.0 cmLVEF(%)27.7 (>50%)LVED Vol(simp.)213.0 mL IVSd1.4 (0.7-1.1cm)FS(%)13 %LVES Vol(simp.)148.0 mL LVDd6.2 (3.8-5.6cm)LA (2D)5.2 (1.6-4.0cm)LVEF(%, simp.)31 % PWd1.4 (0.7-1.1cm)Ao Root(2D)3.0 (2.0-3.7cm)LA ESV INDEX (BP)39.72 mL/m2 IVSs1.3 cmLVOT diam2.4 (1.8-2.4cm) LVDs5.3 (2.5-4.0cm)IVC diam1.9 cm PWs1.1 cm Deformation Strain Apical 4-7.6 % Apical 2-8.2 % Apical 3-8.6 % Global Strain-8.1 % M-Mode Dimensions EPSS2.0 cm LA (MM)5.5 (1.6-4.0cm) Ao Root(MM)3.1 (2.0-3.7cm) Aortic Valve AoV Vmax1.6 m/Benjamin Peak GR10.3 mmHgLVOT Vmax0.8 m/s AoV VTI0.3 mAo Mean GR6.4 mmHgLVOT VTI0.17 m JANIS (VMAX)2.38 cm2AVA (VTI) 2.7 cm2 Mitral Valve MV E Wjui919.6 cm/sDECEL Phpp339 ms MV A Vmax22.9 cm/sP 1/2 T55 ms E/A ratio4.6MVA (PHT)4.0 cm2 TDI E/E' Bopnka69.7E/E' Nvxvgvb17.6 Medial E' Peak V3.04 cm/sLateral E' Peak V7.25 cm/s Pulmonary Valve PV Vmax0.8 m/sPV VTI0.15 mPV Mean GR1.3 mmHg PV Peak GR2.7 mmHg Tricuspid Valve TR Vmax3.3 m/sRAP (EST) 3 veGpYTQP24.8 mmHg TR Peak GR43.8 mmHg Left Ventricle The left ventricle is severely dilated. GLS -8.0% Moderate concentric left ventricular hypertrophy. L VEF is 30-35%. Stage III diastolic dysfunction. Right Ventricle The right ventricle is severely dilated. Right ventricular systolic function is borderline reduced. D evice lead is present in the right ventricle. Atria The left atrium is mildly dilated. The right atrium is moderately dilated. Aortic Valve Aortic valve is trileaflet. Non coronary cusp is heavily calcificed with restricted excursion. No aor tic regurgitation is present. There is no aortic valvular stenosis. Mitral Valve The mitral valve is mildly thickened and appear domming. There is mild mitral valve regurgitation not ed. There is no mitral valve stenosis. Tricuspid Valve The tricuspid valve is normal in structure. There is mild tricuspid valve regurgitation noted. RVSP 4 7 mm Hg. Pulmonic Valve The pulmonary valve is normal in structure. There is trace of pulmonic valvular regurgitation. Great Vessels The aortic root is normal in size. The IVC is normal in size and collapses >50% with inspiration. Pericardium There is no pericardial effusion. Other Information Quality : Adequate Conclusion The left ventricle is severely dilated. Moderate concentric left ventricular hypertrophy. LVEF is 30-35%. Stage III diastolic dysfunction. The right ventricle is severely dilated. Right ventricular systolic function is borderline reduced. The left atrium is mildly dilated. The right atrium is moderately dilated. Aortic valve is trileaflet. Non coronary cusp is heavily calcificed with restricted excursion. There is no aortic valvular stenosis. No aortic regurgitation is present. There is mild mitral valve regurgitation noted. There is mild tricuspid valve regurgitation noted. RVSP 47 mm Hg. There is no pericardial effusion.
[2025-06-14 20:00] VITALS: BP 145/58; PULSE 68; RESP 18; TEMP 98.3; O2SAT 97
[2025-06-14] MEDS ORDERED: NON-FORMULARY MEDICATION 1 EACH (Isosorbide Dinitrate 30 MG) PO SCH (21:00)
[2025-06-14] MEDS ORDERED: NON-FORMULARY MEDICATION 1 EACH (Metoprolol Succinate 100 MG) PO SCH (21:00)
[2025-06-14] MEDS: FAMOTIDINE 20MG TAB PO SCH (21:18)
[2025-06-14 23:42] VITALS: BP 128/63; PULSE 66; RESP 18; TEMP 98
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
[2025-06-15 05:04] VITALS: BP 133/54; PULSE 64; RESP 18; TEMP 98.8
[2025-06-15 05:15] LABS: IMMATURE GRANULOCYTE ABSOLUTE 0.02 K/uL (0-1); NUCLEATED RED BLOOD CELLS 0.0 % (0.0-0.19); PLATELET COUNT (AUTO) 122 K/uL (130-400); RED BLOOD CELL COUNT(AUTO) 2.92 MIL/uL (4.50-6.20); RED CELL DISTRIBUTION WIDTH 13.1 % (11.0-15.5); WHITE BLOOD COUNT (AUTO) 6.6 K/uL (4.8-10.8)
[2025-06-15 05:53] LABS: ASPARTATE AMINOTRANSFERASE 16.0 U/L (10-37); CREATININE 4.9 mg/dL (0.5-1.3); GLOMERULAR FILTR. RATE CALC 12.0 mL/min (>90); GLUCOSE,RANDOM 121.0 mg/dL (70-105); PHOSPHORUS 4.5 mg/dL (2.5-4.9); SODIUM SERUM 137.0 mmol/L (136-145); TOTAL PROTEIN, SERUM 5.8 g/dL (6.0-8.3); UREA NITROGEN, BLOOD 71.0 mg/dL (7-18)
[2025-06-15 08:00] VITALS: BP 132/65; PULSE 72; RESP 17; TEMP 98.3
[2025-06-15 08:12] VITALS: O2SAT 93
[2025-06-15 12:00] VITALS: BP 131/57; PULSE 60; RESP 16; TEMP 97.4
[2025-06-15] MEDS ORDERED: COMPOUND IV MISC 1 EACH IVSOLN MISC PRN (12:30)
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
[2025-06-15 16:00] VITALS: BP 130/55; PULSE 61; RESP 16; TEMP 98.4
[2025-06-15 20:00] VITALS: BP 134/53; PULSE 63; RESP 18; TEMP 98.1; O2SAT 97
[2025-06-16] VITALS (9 sets, daily range): BP systolic 124–157; BP diastolic 55–88; PULSE 57–65; RESP 16–24; TEMP 97.6–98.2; O2SAT 94–97
[2025-06-16 05:27] LABS: NUCLEATED RED BLOOD CELLS 0.0 % (0.0-0.19); PLATELET COUNT (AUTO) 115.0 K/uL (130-400); RED BLOOD CELL COUNT(AUTO) 2.82 MIL/uL (4.50-6.20); RED CELL DISTRIBUTION WIDTH 13.3 % (11.0-15.5); WHITE BLOOD COUNT (AUTO) 5.6 K/uL (4.8-10.8)
[2025-06-16 05:48] LABS: ASPARTATE AMINOTRANSFERASE 13.0 U/L (10-37); CREATININE 5.0 mg/dL (0.5-1.3); GLOMERULAR FILTR. RATE CALC 12.0 mL/min (>90); GLUCOSE,RANDOM 155.0 mg/dL (70-105); SODIUM SERUM 137.0 mmol/L (136-145); TOTAL PROTEIN, SERUM 5.5 g/dL (6.0-8.3)
[2025-06-16 05:58] LABS: UREA NITROGEN, BLOOD 76.0 mg/dL (7-18)
--- NOTE | 2025-06-16 07:04 | HMCIMG ---
EXAM: CT Chest Without IV contrast. CLINICAL HISTORY: Pleuritic chest pain, concern for nodules. TECHNIQUE: Axial computed tomography images of the chest without intravenous contrast. COMPARISON: None provided. FINDINGS: LUNGS: No pulmonary mass. No solid intrapulmonary nodules are demonstrated. Mild peribronchial centrilobular nodules are noted. Paraseptal emphysema is present in the right upper lobe. Minimal subpleural scarring is present in the bilateral upper lobes. Associated subpleural basal atelectasis is demonstrated. PLEURAL SPACES: A moderate right pleural collection is identified, measuring up to 5.0 cm in maximal thickness. A smaller left pleural collection measuring 2.1 cm in maximal thickness is present. No pneumothorax is demonstrated. HEART: Cardiomegaly is noted. No significant pericardial effusion. An external cardiac pacemaker is in situ with no hardware-related complication. VESSELS: Moderate to severe calcific atherosclerosis of the thoracic aorta and coronary circulation. LYMPH NODES: No lymphadenopathy is evident. UPPER ABDOMEN: The upper abdominal solid organs are unremarkable. BONES: Severe degenerative thoracic spondylosis with marginal bridging osteophytes. No acute osseous abnormality. IMPRESSION: 1. Moderate right pleural effusion measuring up to 5.0 cm in thickness, with a smaller left pleural effusion measuring 2.1 cm in thickness. 2. Cardiomegaly. 3. No acute pulmonary findings. Mild peribronchial centrilobular nodules and paraseptal emphysema in the right upper lobe noted. 4. No acute osseous abnormality. /[place]
--- NOTE | 2025-06-16 09:30 | NUR ---
PATIENT COMPLAINING OF SHORTNESS OF BREATH; SPO2 @ 88-92, ROOM TEMPERATURE MODIFIED, PATIENT REPOSITIONED IN BED AND 2 LITERS OF O2 GIVEN VIS NC. POST SPO2 READING 95% POST INTERVENTIONS. WILL CONTINUE TO MONITOR AND TAPER O2.
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
[2025-06-16] MEDS: EPOETIN ALFA-EPBX (NON-ESRD) 10,000 UNIT/ML VIAL SQ SCH (16:15)
[2025-06-16] MEDS ORDERED: COMPOUND IV REFRIGERATED 1 EACH IVSOLN MISC PRN (16:30)
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
[2025-06-17 03:16] LABS: ABG BASE EXCESS -1.3 mmol/L (-2.0-3.0); ABG HCO3 21.6 mmol/L (21.0-28.0); ABG OXYGEN SATURATION 95.4 % (94.0-98.0); ABG PCO2 31 mmHg (35-48); ABG PH 7.456 (7.350-7.450); DEVICE COMMENT LB RN ROSIE; PO2, ARTERIAL BG 72.3 mmHg (83.0-108.0); TEMPERATURE, CELSIUS BG 37.0 CELSIUS (35.5-37.0); VENT MODE, BG ROOMAIR (ROOM AIR)
[2025-06-17 04:00] VITALS: BP 147/64; PULSE 60; RESP 16; TEMP 97.9
--- NOTE | 2025-06-17 05:37 | NUR ---
MORNING LABS/GLUCOSE CHECK PCP AND CRISIS MENTAL HEALTH THERAPIST MADE RECORDER AWARE PATIENT REFUSED MORNING LABS AND BLOOD GLUCOSE CHECK
--- NOTE | 2025-06-17 08:00 | NUR ---
PATIENT REQUESTING AMA FORM TO BE SIGNED; STATED "HE DOESN'T NEED TO BE HERE". DR BHATT INFORMED. AMA FORM SIGNED Addendum: 06/17/25 at 0900 by AMBER URIAS RN RN IV'S TO BILATERAL ARMS REMOVED
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
== END 2025-06-17 09:30 | disposition left against medical advice (07) | DRG 562 ==
LOC: EDH 09:28 → EDHIP 14:21 → 3CH 06-14 12:50
PROVIDERS: ADMIT Internal Medicine; ATTEND Internal Medicine
DX: S42.122A Displaced fracture of acromial process, left shoulder, initial encounter for closed fracture (principal); I21.A1 Myocardial infarction type 2; N17.9 Acute kidney failure, unspecified; I13.0 Hypertensive heart and chronic kidney disease with heart failure and stage 1 through stage 4 chronic kidney disease, or unspecified chronic kidney disease; I50.22 Chronic systolic (congestive) heart failure; N18.4 Chronic kidney disease, stage 4 (severe); I42.9 Cardiomyopathy, unspecified; J91.8 Pleural effusion in other conditions classified elsewhere; S42.132A Displaced fracture of coracoid process, left shoulder, initial encounter for closed fracture; E11.22 Type 2 diabetes mellitus with diabetic chronic kidney disease; E87.6 Hypokalemia; I16.0 Hypertensive urgency; N40.0 Benign prostatic hyperplasia without lower urinary tract symptoms; D64.9 Anemia, unspecified; I25.10 Atherosclerotic heart disease of native coronary artery without angina pectoris; J43.8 Other emphysema; E78.00 Pure hypercholesterolemia, unspecified; Z53.29 Procedure and treatment not carried out because of patient's decision for other reasons; Z95.0 Presence of cardiac pacemaker; Z95.1 Presence of aortocoronary bypass graft; V89.2XXA Person injured in unspecified motor-vehicle accident, traffic, initial encounter; Z51.5 Encounter for palliative care; Z87.891 Personal history of nicotine dependence; Z91.199 Patient's noncompliance with other medical treatment and regimen due to unspecified reason; Y92.410 Unspecified street and highway as the place of occurrence of the external cause; Y93.89 Activity, other specified; Y99.8 Other external cause status
CPT/HCPCS: 36415; 36600; 71110; 71250; 76770; 80048; 80051; 80053; 80305; 81001; 82570; 82728; 82803; 82948; 83036; 83540; 83550; 83735; 83935; 84100; 84156; 84439; 84443; 84481; 84484; 84550; 85025; 85027; 93005; 93306; 93356; 96374; 99285; G0378; J0360; J1171; J1756; J1815; J3480; J7050; Q5106